=== PATIENT | male | born 1965 | race African-American/Black ===

== ENCOUNTER 2020-09-21 17:02 | Inpatient (IN) | payer OTHER ==
[2020-09-21 19:03] VITALS: BMI 35.8
[2020-09-21] MEDS ORDERED: guaiFENesin 200 MG/10 ML 10 ML UNIT-DOSE CUPS PO PRN (21:20)
[2020-09-21] MEDS ORDERED: NICOTINE POLACRILEX 2 MG GUM BC PRN (21:20)
[2020-09-21] MEDS ORDERED: LOPERAMIDE HCL 2 MG CAPSULE PO PRN (21:20)
[2020-09-21] MEDS ORDERED: IBUPROFEN 400 MG TABLET (FP) PO PRN (21:20)
[2020-09-21] MEDS ORDERED: MAG HYDROX/AL HYDROX/SIMETH 30 ML UNIT-DOSE CUP PO PRN (21:20)
[2020-09-21] MEDS ORDERED: P-EPHED 60MG/TRIPROLIDI 2.5MG TABLET PO PRN (21:20)
[2020-09-21] MEDS ORDERED: MAGNESIUM CITRATE 300 ML BOTTLE PO PRN (21:20)
[2020-09-21] MEDS: THIAMINE HCL 100 MG TABLET (FP) PO SCH (23:14)
[2020-09-21] MEDS: MELATONIN 5 MG TABLETS PO SCH (23:14)
[2020-09-22] MEDS: amLODIPine BESYLATE 5 MG TABLET (FP) PO SCH (09:58)
[2020-09-22] MEDS: PRENATAL VITAMINS W/ FOLIC ACID TABLET (FP) PO SCH (09:58)
[2020-09-22] MEDS ORDERED: PATIENT'S OWN MEDICATION (NON-FORMULARY) (Amlodipine/Atorvastatin [Amlodipine-Atorvast 5-1 PO SCH (10:00)
[2020-09-22] MEDS ORDERED: methaDONE HCL 10 MG TABLET PO SCH (11:00)
[2020-09-22 11:54] LABS: HEMATOCRIT 33.8 % (35.4-49); HEMOGLOBIN 10.4 GM/dL (11.7-16.9); MCHC 30.9 g/dl (32.0-35.9); MEAN CELL VOLUME 71.2 fl (80-96); MEAN PLT VOLUME 7.7 fl (7.5-11.1); PLATELET COUNT 261 K/MM3 (134-434); RBC 4.74 M/mm3 (4.00-5.60); RDW 17.3 % (11.9-15.9); WHITE BLOOD COUNT 6.7 K/mm3 (4.0-10.0)
[2020-09-22 12:08] LABS: BLOOD UREA NITROGEN 21.7 mg/dL (7-18); CALCIUM 8.5 mg/dL (8.5-10.1)
[2020-09-22 12:11] LABS: BILIRUBIN,TOTAL 0.6 mg/dL (0.2-1); CREATININE 1.6 mg/dL (0.55-1.3)
[2020-09-22] MEDS ORDERED: methaDONE HCL 10 MG TABLET ONE (12:24)
[2020-09-22] MEDS ORDERED: methaDONE HCL 40 MG DISPERSABLE TABLET ONE (12:25)
[2020-09-22 14:07] LABS: URINE APPEARANCE CLEAR; URINE BILIRUBIN NEGATIVE (NEGATIVE); URINE COLOR YELLOW; URINE GLUCOSE (UA) NEGATIVE (NEGATIVE); URINE KETONE NEGATIVE (NEGATIVE); URINE LEUK ESTERASE NEGATIVE (NEGATIVE); URINE NITRITE NEGATIVE (NEGATIVE); URINE PROTEIN NEGATIVE (NEGATIVE); URINE UROBILINOGEN 0.2 mg/dL (0.2-1.0)
[2020-09-22] MEDS: ATORVASTATIN CA 10 MG TABLET (FP) PO SCH (21:34)
[2020-09-22] MEDS: THIAMINE HCL 100 MG TABLET (FP) PO SCH (21:34)
[2020-09-22] MEDS: MELATONIN 5 MG TABLETS PO SCH (21:34)
[2020-09-22] MEDS: hydrOXYzine PAMOATE 50 MG CAPSULE (FP) PO PRN (21:35)
[2020-09-23] MEDS ORDERED: methaDONE HCL 40 MG DISPERSABLE TABLET ONE (03:47)
[2020-09-23] MEDS ORDERED: methaDONE HCL 10 MG TABLET ONE (03:47)
[2020-09-23] MEDS: amLODIPine BESYLATE 5 MG TABLET (FP) PO SCH (09:49)
[2020-09-23] MEDS: PRENATAL VITAMINS W/ FOLIC ACID TABLET (FP) PO SCH (09:50)
[2020-09-23] MEDS: ACETAMINOPHEN 325 MG TABLET (FP) PO PRN (16:38)
[2020-09-23] MEDS: ATORVASTATIN CA 10 MG TABLET (FP) PO SCH (21:16)
[2020-09-23] MEDS: MELATONIN 5 MG TABLETS PO SCH (21:16)
[2020-09-23] MEDS: THIAMINE HCL 100 MG TABLET (FP) PO SCH (21:16)
[2020-09-24] MEDS ORDERED: methaDONE HCL 10 MG TABLET ONE (04:28)
[2020-09-24] MEDS ORDERED: methaDONE HCL 40 MG DISPERSABLE TABLET ONE (04:29)
[2020-09-24] MEDS: PRENATAL VITAMINS W/ FOLIC ACID TABLET (FP) PO SCH (10:12)
[2020-09-24] MEDS: amLODIPine BESYLATE 5 MG TABLET (FP) PO SCH (10:12)
[2020-09-24] MEDS: hydrOXYzine PAMOATE 50 MG CAPSULE (FP) PO PRN (21:41)
[2020-09-24] MEDS: MELATONIN 5 MG TABLETS PO SCH (21:41)
[2020-09-24] MEDS: ATORVASTATIN CA 10 MG TABLET (FP) PO SCH (21:41)
[2020-09-24] MEDS: THIAMINE HCL 100 MG TABLET (FP) PO SCH (21:41)
[2020-09-25] MEDS ORDERED: methaDONE HCL 40 MG DISPERSABLE TABLET ONE (03:22)
[2020-09-25] MEDS ORDERED: methaDONE HCL 10 MG TABLET ONE (03:22)
[2020-09-25] MEDS: MAGNESIUM HYDROX 2400MG/30ML ORAL SUSPENSION 30 ML CUP PO PRN (08:26)
[2020-09-25] MEDS: amLODIPine BESYLATE 5 MG TABLET (FP) PO SCH (09:42)
[2020-09-25] MEDS: PRENATAL VITAMINS W/ FOLIC ACID TABLET (FP) PO SCH (09:43)
[2020-09-25] MEDS: ATORVASTATIN CA 10 MG TABLET (FP) PO SCH (21:14)
[2020-09-25] MEDS: hydrOXYzine PAMOATE 50 MG CAPSULE (FP) PO PRN (21:14)
[2020-09-25] MEDS: THIAMINE HCL 100 MG TABLET (FP) PO SCH (21:14)
[2020-09-25] MEDS: MELATONIN 5 MG TABLETS PO SCH (21:14)
[2020-09-26] MEDS ORDERED: methaDONE HCL 40 MG DISPERSABLE TABLET ONE (03:24)
[2020-09-26] MEDS ORDERED: methaDONE HCL 10 MG TABLET ONE (03:24)
[2020-09-26] MEDS: amLODIPine BESYLATE 5 MG TABLET (FP) PO SCH (09:14)
[2020-09-26] MEDS: PRENATAL VITAMINS W/ FOLIC ACID TABLET (FP) PO SCH (09:14)
[2020-09-26] MEDS: MELATONIN 5 MG TABLETS PO SCH (21:22)
[2020-09-26] MEDS: ATORVASTATIN CA 10 MG TABLET (FP) PO SCH (21:23)
[2020-09-26] MEDS: THIAMINE HCL 100 MG TABLET (FP) PO SCH (21:23)
[2020-09-26] MEDS: hydrOXYzine PAMOATE 50 MG CAPSULE (FP) PO PRN (21:23)
[2020-09-27] MEDS ORDERED: methaDONE HCL 10 MG TABLET ONE (03:22)
[2020-09-27] MEDS ORDERED: methaDONE HCL 40 MG DISPERSABLE TABLET ONE (03:23)
[2020-09-27] MEDS: PRENATAL VITAMINS W/ FOLIC ACID TABLET (FP) PO SCH (09:53)
[2020-09-27] MEDS: amLODIPine BESYLATE 5 MG TABLET (FP) PO SCH (09:53)
[2020-09-27] MEDS: MAGNESIUM HYDROX 2400MG/30ML ORAL SUSPENSION 30 ML CUP PO PRN (09:54)
[2020-09-27] MEDS: MELATONIN 5 MG TABLETS PO SCH (21:35)
[2020-09-27] MEDS: THIAMINE HCL 100 MG TABLET (FP) PO SCH (21:35)
[2020-09-27] MEDS: ATORVASTATIN CA 10 MG TABLET (FP) PO SCH (21:36)
[2020-09-27] MEDS: hydrOXYzine PAMOATE 50 MG CAPSULE (FP) PO PRN (21:36)
[2020-09-27] MEDS: ACETAMINOPHEN 325 MG TABLET (FP) PO PRN (22:04)
[2020-09-28] MEDS ORDERED: methaDONE HCL 10 MG TABLET ONE (04:26)
[2020-09-28] MEDS ORDERED: methaDONE HCL 40 MG DISPERSABLE TABLET ONE (04:26)
[2020-09-28] MEDS: amLODIPine BESYLATE 5 MG TABLET (FP) PO SCH (10:12)
[2020-09-28] MEDS: PRENATAL VITAMINS W/ FOLIC ACID TABLET (FP) PO SCH (10:12)
[2020-09-28] MEDS: THIAMINE HCL 100 MG TABLET (FP) PO SCH (21:30)
[2020-09-28] MEDS: MELATONIN 5 MG TABLETS PO SCH (21:30)
[2020-09-28] MEDS: ATORVASTATIN CA 10 MG TABLET (FP) PO SCH (21:30)
[2020-09-28] MEDS: hydrOXYzine PAMOATE 50 MG CAPSULE (FP) PO PRN (21:31)
[2020-09-29] MEDS ORDERED: methaDONE HCL 10 MG TABLET PO SCH (06:00)
[2020-09-29] MEDS ORDERED: methaDONE HCL 10 MG TABLET ONE (06:00)
[2020-09-29] MEDS ORDERED: methaDONE HCL 40 MG DISPERSABLE TABLET ONE (06:00)
[2020-09-29] MEDS: PRENATAL VITAMINS W/ FOLIC ACID TABLET (FP) PO SCH (10:10)
[2020-09-29] MEDS: amLODIPine BESYLATE 5 MG TABLET (FP) PO SCH (10:10)
[2020-09-29] MEDS: MELATONIN 5 MG TABLETS PO SCH (21:46)
[2020-09-29] MEDS: hydrOXYzine PAMOATE 50 MG CAPSULE (FP) PO PRN (21:46)
[2020-09-29] MEDS: THIAMINE HCL 100 MG TABLET (FP) PO SCH (21:46)
[2020-09-29] MEDS: ATORVASTATIN CA 10 MG TABLET (FP) PO SCH (21:46)
[2020-09-30] MEDS ORDERED: methaDONE HCL 40 MG DISPERSABLE TABLET ONE (06:08)
[2020-09-30] MEDS ORDERED: methaDONE HCL 10 MG TABLET ONE (06:08)
[2020-09-30] MEDS: PRENATAL VITAMINS W/ FOLIC ACID TABLET (FP) PO SCH (10:33)
[2020-09-30] MEDS: amLODIPine BESYLATE 5 MG TABLET (FP) PO SCH (10:33)
[2020-09-30] MEDS: MELATONIN 5 MG TABLETS PO SCH (21:45)
[2020-09-30] MEDS: hydrOXYzine PAMOATE 50 MG CAPSULE (FP) PO PRN (21:45)
[2020-09-30] MEDS: ATORVASTATIN CA 10 MG TABLET (FP) PO SCH (21:45)
[2020-09-30] MEDS: THIAMINE HCL 100 MG TABLET (FP) PO SCH (21:45)
[2020-10-01] MEDS ORDERED: methaDONE HCL 10 MG TABLET ONE (06:01)
[2020-10-01] MEDS ORDERED: methaDONE HCL 40 MG DISPERSABLE TABLET ONE (06:01)
[2020-10-01] MEDS: PRENATAL VITAMINS W/ FOLIC ACID TABLET (FP) PO SCH (10:23)
[2020-10-01] MEDS: amLODIPine BESYLATE 5 MG TABLET (FP) PO SCH (10:23)
[2020-10-01] MEDS: MELATONIN 5 MG TABLETS PO SCH (21:29)
[2020-10-01] MEDS: hydrOXYzine PAMOATE 50 MG CAPSULE (FP) PO PRN (21:29)
[2020-10-01] MEDS: THIAMINE HCL 100 MG TABLET (FP) PO SCH (21:29)
[2020-10-01] MEDS: ATORVASTATIN CA 10 MG TABLET (FP) PO SCH (21:29)
[2020-10-02] MEDS ORDERED: methaDONE HCL 10 MG TABLET ONE (03:59)
[2020-10-02] MEDS ORDERED: methaDONE HCL 40 MG DISPERSABLE TABLET ONE (04:00)
[2020-10-02] MEDS: amLODIPine BESYLATE 5 MG TABLET (FP) PO SCH (09:50)
[2020-10-02] MEDS: PRENATAL VITAMINS W/ FOLIC ACID TABLET (FP) PO SCH (09:50)
[2020-10-02] MEDS: ATORVASTATIN CA 10 MG TABLET (FP) PO SCH (21:26)
[2020-10-02] MEDS: THIAMINE HCL 100 MG TABLET (FP) PO SCH (21:26)
[2020-10-02] MEDS: MELATONIN 5 MG TABLETS PO SCH (21:26)
[2020-10-03] MEDS: ACETAMINOPHEN 325 MG TABLET (FP) PO PRN (00:42)
[2020-10-03] MEDS ORDERED: methaDONE HCL 10 MG TABLET ONE (04:23)
[2020-10-03] MEDS ORDERED: methaDONE HCL 40 MG DISPERSABLE TABLET ONE (04:23)
[2020-10-03] MEDS: MAGNESIUM HYDROX 2400MG/30ML ORAL SUSPENSION 30 ML CUP PO PRN (06:40)
[2020-10-03] MEDS: amLODIPine BESYLATE 5 MG TABLET (FP) PO SCH (09:50)
[2020-10-03] MEDS: PRENATAL VITAMINS W/ FOLIC ACID TABLET (FP) PO SCH (09:50)
[2020-10-03] MEDS: THIAMINE HCL 100 MG TABLET (FP) PO SCH (21:20)
[2020-10-03] MEDS: ATORVASTATIN CA 10 MG TABLET (FP) PO SCH (21:20)
[2020-10-03] MEDS: MELATONIN 5 MG TABLETS PO SCH (21:20)
[2020-10-03] MEDS: hydrOXYzine PAMOATE 50 MG CAPSULE (FP) PO PRN (21:20)
[2020-10-03] MEDS: DOCUSATE SODIUM 100 MG CAPSULE (FP) PO SCH (21:21)
[2020-10-04] MEDS ORDERED: methaDONE HCL 10 MG TABLET ONE (05:01)
[2020-10-04] MEDS ORDERED: methaDONE HCL 40 MG DISPERSABLE TABLET ONE (05:02)
[2020-10-04] MEDS: PRENATAL VITAMINS W/ FOLIC ACID TABLET (FP) PO SCH (10:09)
[2020-10-04] MEDS: amLODIPine BESYLATE 5 MG TABLET (FP) PO SCH (10:09)
[2020-10-04] MEDS: THIAMINE HCL 100 MG TABLET (FP) PO SCH (21:21)
[2020-10-04] MEDS: MELATONIN 5 MG TABLETS PO SCH (21:21)
[2020-10-04] MEDS: ATORVASTATIN CA 10 MG TABLET (FP) PO SCH (21:21)
[2020-10-04] MEDS: hydrOXYzine PAMOATE 50 MG CAPSULE (FP) PO PRN (21:21)
[2020-10-04] MEDS: DOCUSATE SODIUM 100 MG CAPSULE (FP) PO SCH (21:21)
[2020-10-05] MEDS ORDERED: methaDONE HCL 40 MG DISPERSABLE TABLET ONE (03:42)
[2020-10-05] MEDS ORDERED: methaDONE HCL 10 MG TABLET ONE (03:42)
[2020-10-05] MEDS: PRENATAL VITAMINS W/ FOLIC ACID TABLET (FP) PO SCH (10:15)
[2020-10-05] MEDS: amLODIPine BESYLATE 5 MG TABLET (FP) PO SCH (10:15)
[2020-10-05] MEDS: ACETAMINOPHEN 325 MG TABLET (FP) PO PRN (19:23)
[2020-10-05] MEDS: hydrOXYzine PAMOATE 50 MG CAPSULE (FP) PO PRN (21:20)
[2020-10-05] MEDS: MELATONIN 5 MG TABLETS PO SCH (21:20)
[2020-10-05] MEDS: THIAMINE HCL 100 MG TABLET (FP) PO SCH (21:20)
[2020-10-05] MEDS: DOCUSATE SODIUM 100 MG CAPSULE (FP) PO SCH (21:20)
[2020-10-05] MEDS: ATORVASTATIN CA 10 MG TABLET (FP) PO SCH (21:20)
[2020-10-06] MEDS ORDERED: methaDONE HCL 10 MG TABLET ONE (06:23)
[2020-10-06] MEDS ORDERED: methaDONE HCL 40 MG DISPERSABLE TABLET ONE (06:24)
[2020-10-06] MEDS: PRENATAL VITAMINS W/ FOLIC ACID TABLET (FP) PO SCH (10:00)
[2020-10-06] MEDS: amLODIPine BESYLATE 5 MG TABLET (FP) PO SCH (10:01)
[2020-10-06] MEDS: THIAMINE HCL 100 MG TABLET (FP) PO SCH (21:33)
[2020-10-06] MEDS: ATORVASTATIN CA 10 MG TABLET (FP) PO SCH (21:33)
[2020-10-06] MEDS: DOCUSATE SODIUM 100 MG CAPSULE (FP) PO SCH (21:33)
[2020-10-06] MEDS: MELATONIN 5 MG TABLETS PO SCH (21:34)
[2020-10-07] MEDS ORDERED: methaDONE HCL 40 MG DISPERSABLE TABLET ONE (03:26)
[2020-10-07] MEDS ORDERED: methaDONE HCL 10 MG TABLET ONE (03:26)
[2020-10-07] MEDS: amLODIPine BESYLATE 5 MG TABLET (FP) PO SCH (09:52)
[2020-10-07] MEDS: PRENATAL VITAMINS W/ FOLIC ACID TABLET (FP) PO SCH (09:52)
[2020-10-07] MEDS: DOCUSATE SODIUM 100 MG CAPSULE (FP) PO SCH (21:21)
[2020-10-07] MEDS: MELATONIN 5 MG TABLETS PO SCH (21:22)
[2020-10-07] MEDS: THIAMINE HCL 100 MG TABLET (FP) PO SCH (21:22)
[2020-10-07] MEDS: ATORVASTATIN CA 10 MG TABLET (FP) PO SCH (21:22)
[2020-10-08] MEDS ORDERED: methaDONE HCL 40 MG DISPERSABLE TABLET ONE (04:48)
[2020-10-08] MEDS ORDERED: methaDONE HCL 10 MG TABLET ONE (04:48)
[2020-10-08 07:03] VITALS: TEMP 98
[2020-10-08] MEDS: PRENATAL VITAMINS W/ FOLIC ACID TABLET (FP) PO SCH (09:07)
[2020-10-08] MEDS: amLODIPine BESYLATE 5 MG TABLET (FP) PO SCH (09:07)
[2020-10-08 09:40] VITALS: BP 144/69; PULSE 74
== END 2020-10-08 10:22 | disposition home or self-care (01) | DRG 772 ==
LOC: YASAS 17:02 → Y5N 21:07
PROVIDERS: ADMIT Allergy & Immunology; ATTEND Allergy & Immunology
PROC: HZ42ZZZ Group Counseling for Substance Abuse Treatment, Cognitive-Behavioral (ICD-10-PCS; principal; 2020-09-21)
DX: F11.20 Opioid dependence, uncomplicated (principal); F14.20 Cocaine dependence, uncomplicated; F17.210 Nicotine dependence, cigarettes, uncomplicated; F43.10 Post-traumatic stress disorder, unspecified; D50.9 Iron deficiency anemia, unspecified; E78.5 Hyperlipidemia, unspecified; I10 Essential (primary) hypertension; H55.00 Unspecified nystagmus; E66.9 Obesity, unspecified; Z68.35 Body mass index [BMI] 35.0-35.9, adult; R76.11 Nonspecific reaction to tuberculin skin test without active tuberculosis; K00.0 Anodontia; K59.03 Drug induced constipation; T40.2X5A Adverse effect of other opioids, initial encounter; Y92.238 Other place in hospital as the place of occurrence of the external cause; Z88.8 Allergy status to other drugs, medicaments and biological substances
CPT/HCPCS: 36415; 71046-TC-FY; 80053; 81003; 85027; 86780; 93005; 93010; C9803; U0003

== ENCOUNTER 2021-01-07 14:03 | Inpatient (IN) | payer OTHER ==
[2021-01-07 17:00] VITALS: BMI 35.5
[2021-01-07] MEDS ORDERED: P-EPHED 60MG/TRIPROLIDI 2.5MG TABLET PO PRN (22:19)
[2021-01-07] MEDS ORDERED: MAG HYDROX/AL HYDROX/SIMETH 30 ML UNIT-DOSE CUP PO PRN (22:19)
[2021-01-07] MEDS ORDERED: LOPERAMIDE HCL 2 MG CAPSULE PO PRN (22:19)
[2021-01-07] MEDS ORDERED: guaiFENesin 200 MG/10 ML 10 ML UNIT-DOSE CUPS PO PRN (22:19)
[2021-01-07] MEDS ORDERED: MAGNESIUM CITRATE 300 ML BOTTLE PO PRN (22:19)
[2021-01-07] MEDS ORDERED: IBUPROFEN 400 MG TABLET (FP) PO PRN (22:19)
[2021-01-07] MEDS ORDERED: ALBUTEROL SO4 HFA INHALER IH SCH (22:30)
[2021-01-07] MEDS: MELATONIN 5 MG TABLETS PO SCH (23:39)
[2021-01-08] MEDS: amLODIPine BESYLATE 5 MG TABLET (FP) PO SCH (09:50)
[2021-01-08] MEDS: PRENATAL VITAMINS W/ FOLIC ACID TABLET (FP) PO SCH (09:50)
[2021-01-08] MEDS: FERROUS SO4 325 MG TABLET (FP) PO SCH (09:50)
[2021-01-08] MEDS ORDERED: METHADONE HCL 10 MG TABLET PO ONE (09:53)
[2021-01-08] MEDS ORDERED: PATIENT'S OWN MEDICATION (NON-FORMULARY) (Amlodipine/Atorvastatin [Amlodipine-Atorvast 5-1 PO SCH (10:00)
[2021-01-08] MEDS ORDERED: FOLIC ACID 1 MG TABLET (FP) PO SCH (10:00)
[2021-01-08 10:11] LABS: HEMATOCRIT 31.9 % (35.4-49); HEMOGLOBIN 10.2 GM/dL (11.7-16.9); MCH 22.6 pg (25.7-33.7); MEAN CELL VOLUME 70.7 fl (80-96); MEAN PLT VOLUME 7.1 fl (7.5-11.1); PLATELET COUNT 302 K/MM3 (134-434); RBC 4.51 M/mm3 (4.00-5.60); RDW 16.2 % (11.9-15.9); WHITE BLOOD COUNT 5.8 K/mm3 (4.0-10.0)
[2021-01-08 10:21] LABS: ALBUMIN 3.4 g/dl (3.4-5.0); BLOOD UREA NITROGEN 27.2 mg/dL (7-18); CALCIUM 9.1 mg/dL (8.5-10.1)
[2021-01-08] MEDS ORDERED: METHADONE HCL 5 MG TABLET ONE (10:22)
[2021-01-08] MEDS ORDERED: METHADONE HCL 40 MG DISPERSABLE TABLET ONE (10:23)
[2021-01-08] MEDS ORDERED: METHADONE HCL 10 MG TABLET ONE (10:23)
[2021-01-08 10:24] LABS: CREATININE 2.2 mg/dL (0.55-1.3)
[2021-01-08 10:25] LABS: BILIRUBIN,TOTAL 0.6 mg/dL (0.2-1)
[2021-01-08 10:26] LABS: TOT PROT 6.4 g/dl (6.4-8.2)
[2021-01-08] MEDS: hydrOXYzine PAMOATE 25 MG CAPSULE (FP) PO PRN ×2 (10:28→21:16)
[2021-01-08] MEDS ORDERED: METHADONE PO ONE (10:30)
[2021-01-08 17:41] LABS: URINE APPEARANCE CLEAR; URINE BILIRUBIN NEGATIVE (NEGATIVE); URINE COLOR YELLOW; URINE GLUCOSE (UA) NEGATIVE (NEGATIVE); URINE KETONE NEGATIVE (NEGATIVE); URINE LEUK ESTERASE NEGATIVE (NEGATIVE); URINE NITRITE NEGATIVE (NEGATIVE); URINE PROTEIN NEGATIVE (NEGATIVE); URINE UROBILINOGEN 0.2 mg/dL (0.2-1.0)
[2021-01-08] MEDS: THIAMINE HCL 100 MG TABLET (FP) PO SCH (21:15)
[2021-01-08] MEDS: MELATONIN 5 MG TABLETS PO SCH (21:15)
[2021-01-08] MEDS: ATORVASTATIN CA 10 MG TABLET (FP) PO SCH (21:17)
[2021-01-08] MEDS ORDERED: THIAMINE HCL 100 MG TABLET (FP) PO SCH (22:00)
[2021-01-09] MEDS: MAGNESIUM HYDROX 2400MG/30ML ORAL SUSPENSION 30 ML CUP PO PRN ×2 (03:22→21:02)
[2021-01-09] MEDS ORDERED: METHADONE HCL 10 MG TABLET PO SCH (06:00)
[2021-01-09] MEDS ORDERED: METHADONE HCL 5 MG TABLET ONE (06:17)
[2021-01-09] MEDS ORDERED: METHADONE HCL 10 MG TABLET ONE (06:17)
[2021-01-09] MEDS ORDERED: METHADONE HCL 40 MG DISPERSABLE TABLET ONE (06:18)
[2021-01-09] MEDS: METHADONE PO SCH (07:45)
[2021-01-09] MEDS: FERROUS SO4 325 MG TABLET (FP) PO SCH (09:56)
[2021-01-09] MEDS: amLODIPine BESYLATE 5 MG TABLET (FP) PO SCH (09:56)
[2021-01-09] MEDS: PRENATAL VITAMINS W/ FOLIC ACID TABLET (FP) PO SCH (09:56)
[2021-01-09] MEDS: MELATONIN 5 MG TABLETS PO SCH (21:01)
[2021-01-09] MEDS: THIAMINE HCL 100 MG TABLET (FP) PO SCH (21:01)
[2021-01-09] MEDS: ATORVASTATIN CA 10 MG TABLET (FP) PO SCH (21:01)
[2021-01-10] MEDS ORDERED: METHADONE HCL 5 MG TABLET ONE (03:24)
[2021-01-10] MEDS ORDERED: METHADONE HCL 40 MG DISPERSABLE TABLET ONE (03:24)
[2021-01-10] MEDS ORDERED: METHADONE HCL 10 MG TABLET ONE (03:24)
[2021-01-10] MEDS: METHADONE PO SCH (06:45)
[2021-01-10] MEDS: amLODIPine BESYLATE 5 MG TABLET (FP) PO SCH (10:08)
[2021-01-10] MEDS: FERROUS SO4 325 MG TABLET (FP) PO SCH (10:08)
[2021-01-10] MEDS: PRENATAL VITAMINS W/ FOLIC ACID TABLET (FP) PO SCH (10:08)
[2021-01-10] MEDS: ATORVASTATIN CA 10 MG TABLET (FP) PO SCH (21:13)
[2021-01-10] MEDS: THIAMINE HCL 100 MG TABLET (FP) PO SCH (21:13)
[2021-01-10] MEDS: MELATONIN 5 MG TABLETS PO SCH (21:13)
[2021-01-10] MEDS: AMMONIUM LACTATE 12% LOTION 225 GM BOTTLE TP SCH (21:14)
[2021-01-10] MEDS: DOCUSATE SODIUM 100 MG CAPSULE (FP) PO SCH (21:15)
[2021-01-11 05:11] LABS: SARS-CoV-2 NAA Not Detected (Not Detected)
[2021-01-11] MEDS ORDERED: METHADONE HCL 40 MG DISPERSABLE TABLET ONE (06:31)
[2021-01-11] MEDS ORDERED: METHADONE HCL 10 MG TABLET ONE (06:31)
[2021-01-11] MEDS ORDERED: METHADONE HCL 5 MG TABLET ONE (06:31)
[2021-01-11] MEDS: METHADONE PO SCH (07:11)
[2021-01-11] MEDS ORDERED: PT OWN MED DRAWER 7, Y5N ONE ×3 (08:53→19:04)
[2021-01-11] MEDS: FERROUS SO4 325 MG TABLET (FP) PO SCH (10:11)
[2021-01-11] MEDS: AMMONIUM LACTATE 12% LOTION 225 GM BOTTLE TP SCH ×2 (10:11→21:25)
[2021-01-11] MEDS: PRENATAL VITAMINS W/ FOLIC ACID TABLET (FP) PO SCH (10:11)
[2021-01-11] MEDS: amLODIPine BESYLATE 5 MG TABLET (FP) PO SCH (10:11)
[2021-01-11] MEDS ORDERED: MASKS NR ONE (16:01)
[2021-01-11] MEDS: DOCUSATE SODIUM 100 MG CAPSULE (FP) PO SCH (21:24)
[2021-01-11] MEDS: THIAMINE HCL 100 MG TABLET (FP) PO SCH (21:24)
[2021-01-11] MEDS: ATORVASTATIN CA 10 MG TABLET (FP) PO SCH (21:24)
[2021-01-11] MEDS: MELATONIN 5 MG TABLETS PO SCH (21:25)
[2021-01-12] MEDS ORDERED: METHADONE HCL 10 MG TABLET ONE (06:16)
[2021-01-12] MEDS ORDERED: METHADONE HCL 5 MG TABLET ONE (06:16)
[2021-01-12] MEDS ORDERED: METHADONE HCL 40 MG DISPERSABLE TABLET ONE (06:17)
[2021-01-12] MEDS: METHADONE PO SCH (06:32)
[2021-01-12] MEDS ORDERED: PT OWN MED DRAWER 7, Y5N ONE (09:00)
[2021-01-12] MEDS: PRENATAL VITAMINS W/ FOLIC ACID TABLET (FP) PO SCH (09:58)
[2021-01-12] MEDS: amLODIPine BESYLATE 5 MG TABLET (FP) PO SCH (09:58)
[2021-01-12] MEDS: FERROUS SO4 325 MG TABLET (FP) PO SCH (09:58)
[2021-01-12] MEDS: AMMONIUM LACTATE 12% LOTION 225 GM BOTTLE TP SCH ×2 (09:58→21:22)
[2021-01-12] MEDS ORDERED: ALBUTEROL SO4 HFA INHALER IH PRN (12:35)
[2021-01-12] MEDS: ATORVASTATIN CA 10 MG TABLET (FP) PO SCH (21:21)
[2021-01-12] MEDS: DOCUSATE SODIUM 100 MG CAPSULE (FP) PO SCH (21:21)
[2021-01-12] MEDS: THIAMINE HCL 100 MG TABLET (FP) PO SCH (21:21)
[2021-01-12] MEDS: MELATONIN 5 MG TABLETS PO SCH (21:21)
[2021-01-13] MEDS ORDERED: METHADONE HCL 5 MG TABLET ONE (06:43)
[2021-01-13] MEDS ORDERED: METHADONE HCL 10 MG TABLET ONE (06:43)
[2021-01-13] MEDS ORDERED: METHADONE HCL 40 MG DISPERSABLE TABLET ONE (06:44)
[2021-01-13] MEDS: METHADONE PO SCH (06:56)
[2021-01-13] MEDS: amLODIPine BESYLATE 5 MG TABLET (FP) PO SCH (10:00)
[2021-01-13] MEDS: AMMONIUM LACTATE 12% LOTION 225 GM BOTTLE TP SCH ×2 (10:00→21:10)
[2021-01-13] MEDS: PRENATAL VITAMINS W/ FOLIC ACID TABLET (FP) PO SCH (10:00)
[2021-01-13] MEDS: FERROUS SO4 325 MG TABLET (FP) PO SCH (10:00)
[2021-01-13] MEDS: MELATONIN 5 MG TABLETS PO SCH (21:09)
[2021-01-13] MEDS: DOCUSATE SODIUM 100 MG CAPSULE (FP) PO SCH (21:09)
[2021-01-13] MEDS: ATORVASTATIN CA 10 MG TABLET (FP) PO SCH (21:09)
[2021-01-13] MEDS: THIAMINE HCL 100 MG TABLET (FP) PO SCH (21:09)
[2021-01-14] MEDS ORDERED: METHADONE HCL 5 MG TABLET ONE (05:23)
[2021-01-14] MEDS ORDERED: METHADONE HCL 40 MG DISPERSABLE TABLET ONE (05:23)
[2021-01-14] MEDS ORDERED: METHADONE HCL 10 MG TABLET ONE (05:23)
[2021-01-14] MEDS: METHADONE PO SCH (06:34)
[2021-01-14] MEDS: FERROUS SO4 325 MG TABLET (FP) PO SCH (09:42)
[2021-01-14] MEDS: amLODIPine BESYLATE 5 MG TABLET (FP) PO SCH (09:43)
[2021-01-14] MEDS: AMMONIUM LACTATE 12% LOTION 225 GM BOTTLE TP SCH ×2 (09:43→21:06)
[2021-01-14] MEDS: PRENATAL VITAMINS W/ FOLIC ACID TABLET (FP) PO SCH (09:43)
[2021-01-14] MEDS: THIAMINE HCL 100 MG TABLET (FP) PO SCH (21:05)
[2021-01-14] MEDS: ATORVASTATIN CA 10 MG TABLET (FP) PO SCH (21:05)
[2021-01-14] MEDS: DOCUSATE SODIUM 100 MG CAPSULE (FP) PO SCH (21:05)
[2021-01-14] MEDS: MELATONIN 5 MG TABLETS PO SCH (21:05)
[2021-01-15] MEDS ORDERED: METHADONE HCL 10 MG TABLET ONE (06:18)
[2021-01-15] MEDS ORDERED: METHADONE HCL 5 MG TABLET ONE (06:18)
[2021-01-15] MEDS ORDERED: METHADONE HCL 40 MG DISPERSABLE TABLET ONE (06:19)
[2021-01-15] MEDS: METHADONE PO SCH (06:59)
[2021-01-15] MEDS: FERROUS SO4 325 MG TABLET (FP) PO SCH (09:58)
[2021-01-15] MEDS: amLODIPine BESYLATE 5 MG TABLET (FP) PO SCH (09:58)
[2021-01-15] MEDS: PRENATAL VITAMINS W/ FOLIC ACID TABLET (FP) PO SCH (09:58)
[2021-01-15] MEDS: AMMONIUM LACTATE 12% LOTION 225 GM BOTTLE TP SCH ×2 (09:59→21:22)
[2021-01-15] MEDS: THIAMINE HCL 100 MG TABLET (FP) PO SCH (21:23)
[2021-01-15] MEDS: ATORVASTATIN CA 10 MG TABLET (FP) PO SCH (21:23)
[2021-01-15] MEDS: DOCUSATE SODIUM 100 MG CAPSULE (FP) PO SCH (21:23)
[2021-01-15] MEDS: MELATONIN 5 MG TABLETS PO SCH (21:23)
[2021-01-16] MEDS ORDERED: METHADONE HCL 5 MG TABLET ONE (03:21)
[2021-01-16] MEDS ORDERED: METHADONE HCL 10 MG TABLET ONE (03:21)
[2021-01-16] MEDS ORDERED: METHADONE HCL 40 MG DISPERSABLE TABLET ONE (03:21)
[2021-01-16] MEDS: METHADONE PO SCH (06:54)
[2021-01-16] MEDS: FERROUS SO4 325 MG TABLET (FP) PO SCH (09:28)
[2021-01-16] MEDS: amLODIPine BESYLATE 5 MG TABLET (FP) PO SCH (09:28)
[2021-01-16] MEDS: AMMONIUM LACTATE 12% LOTION 225 GM BOTTLE TP SCH ×2 (09:29→21:39)
[2021-01-16] MEDS: PRENATAL VITAMINS W/ FOLIC ACID TABLET (FP) PO SCH (09:29)
[2021-01-16] MEDS ORDERED: PT OWN MED DRAWER 7, Y5N ONE (16:04)
[2021-01-16] MEDS: DOCUSATE SODIUM 100 MG CAPSULE (FP) PO SCH (21:37)
[2021-01-16] MEDS: ATORVASTATIN CA 10 MG TABLET (FP) PO SCH (21:37)
[2021-01-16] MEDS: THIAMINE HCL 100 MG TABLET (FP) PO SCH (21:38)
[2021-01-16] MEDS: MELATONIN 5 MG TABLETS PO SCH (21:38)
[2021-01-17] MEDS ORDERED: METHADONE HCL 5 MG TABLET ONE (03:21)
[2021-01-17] MEDS ORDERED: METHADONE HCL 40 MG DISPERSABLE TABLET ONE (03:21)
[2021-01-17] MEDS ORDERED: METHADONE HCL 10 MG TABLET ONE (03:21)
[2021-01-17] MEDS: METHADONE PO SCH (07:01)
[2021-01-17] MEDS: AMMONIUM LACTATE 12% LOTION 225 GM BOTTLE TP SCH ×2 (09:36→21:18)
[2021-01-17] MEDS: PRENATAL VITAMINS W/ FOLIC ACID TABLET (FP) PO SCH (09:37)
[2021-01-17] MEDS: FERROUS SO4 325 MG TABLET (FP) PO SCH (09:37)
[2021-01-17] MEDS: amLODIPine BESYLATE 5 MG TABLET (FP) PO SCH (09:37)
[2021-01-17] MEDS: MELATONIN 5 MG TABLETS PO SCH (21:11)
[2021-01-17] MEDS: ATORVASTATIN CA 10 MG TABLET (FP) PO SCH (21:11)
[2021-01-17] MEDS: THIAMINE HCL 100 MG TABLET (FP) PO SCH (21:11)
[2021-01-17] MEDS: DOCUSATE SODIUM 100 MG CAPSULE (FP) PO SCH (21:11)
[2021-01-18] MEDS ORDERED: METHADONE HCL 5 MG TABLET ONE (03:33)
[2021-01-18] MEDS ORDERED: METHADONE HCL 40 MG DISPERSABLE TABLET ONE (03:34)
[2021-01-18] MEDS ORDERED: METHADONE HCL 10 MG TABLET ONE (03:34)
[2021-01-18] MEDS: METHADONE PO SCH (06:53)
[2021-01-18] MEDS: FERROUS SO4 325 MG TABLET (FP) PO SCH (09:33)
[2021-01-18] MEDS: PRENATAL VITAMINS W/ FOLIC ACID TABLET (FP) PO SCH (09:33)
[2021-01-18] MEDS: AMMONIUM LACTATE 12% LOTION 225 GM BOTTLE TP SCH ×2 (09:33→21:36)
[2021-01-18] MEDS: amLODIPine BESYLATE 5 MG TABLET (FP) PO SCH (09:33)
[2021-01-18] MEDS: DOCUSATE SODIUM 100 MG CAPSULE (FP) PO SCH (21:35)
[2021-01-18] MEDS: ATORVASTATIN CA 10 MG TABLET (FP) PO SCH (21:35)
[2021-01-18] MEDS: THIAMINE HCL 100 MG TABLET (FP) PO SCH (21:35)
[2021-01-18] MEDS: MELATONIN 5 MG TABLETS PO SCH (21:35)
[2021-01-18] MEDS: ACETAMINOPHEN 325 MG TABLET (FP) PO PRN (22:49)
[2021-01-19] MEDS ORDERED: METHADONE HCL 5 MG TABLET ONE (03:17)
[2021-01-19] MEDS ORDERED: METHADONE HCL 10 MG TABLET ONE (03:18)
[2021-01-19] MEDS ORDERED: METHADONE HCL 40 MG DISPERSABLE TABLET ONE (03:18)
[2021-01-19] MEDS: METHADONE PO SCH (06:58)
[2021-01-19] MEDS: amLODIPine BESYLATE 5 MG TABLET (FP) PO SCH (09:48)
[2021-01-19] MEDS: PRENATAL VITAMINS W/ FOLIC ACID TABLET (FP) PO SCH (09:48)
[2021-01-19] MEDS: FERROUS SO4 325 MG TABLET (FP) PO SCH (09:48)
[2021-01-19] MEDS: AMMONIUM LACTATE 12% LOTION 225 GM BOTTLE TP SCH ×2 (09:49→21:25)
[2021-01-19] MEDS ORDERED: PT OWN MED DRAWER 7, Y5N ONE (19:57)
[2021-01-19] MEDS: DOCUSATE SODIUM 100 MG CAPSULE (FP) PO SCH (21:25)
[2021-01-19] MEDS: ATORVASTATIN CA 10 MG TABLET (FP) PO SCH (21:25)
[2021-01-19] MEDS: MELATONIN 5 MG TABLETS PO SCH (21:25)
[2021-01-19] MEDS: THIAMINE HCL 100 MG TABLET (FP) PO SCH (21:26)
[2021-01-19] MEDS: ACETAMINOPHEN 325 MG TABLET (FP) PO PRN (22:52)
[2021-01-20] MEDS ORDERED: METHADONE HCL 5 MG TABLET ONE (03:16)
[2021-01-20] MEDS ORDERED: METHADONE HCL 40 MG DISPERSABLE TABLET ONE (03:16)
[2021-01-20] MEDS ORDERED: METHADONE HCL 10 MG TABLET ONE (03:16)
[2021-01-20] MEDS: METHADONE PO SCH (06:55)
[2021-01-20] MEDS: FERROUS SO4 325 MG TABLET (FP) PO SCH (09:10)
[2021-01-20] MEDS: PRENATAL VITAMINS W/ FOLIC ACID TABLET (FP) PO SCH (09:10)
[2021-01-20] MEDS: amLODIPine BESYLATE 5 MG TABLET (FP) PO SCH (09:10)
[2021-01-20] MEDS: AMMONIUM LACTATE 12% LOTION 225 GM BOTTLE TP SCH ×2 (09:11→21:15)
[2021-01-20] MEDS: MELATONIN 5 MG TABLETS PO SCH (21:14)
[2021-01-20] MEDS: THIAMINE HCL 100 MG TABLET (FP) PO SCH (21:14)
[2021-01-20] MEDS: DOCUSATE SODIUM 100 MG CAPSULE (FP) PO SCH (21:14)
[2021-01-20] MEDS: ATORVASTATIN CA 10 MG TABLET (FP) PO SCH (21:14)
[2021-01-21] MEDS ORDERED: METHADONE HCL 10 MG TABLET ONE (03:18)
[2021-01-21] MEDS ORDERED: METHADONE HCL 5 MG TABLET ONE (03:18)
[2021-01-21] MEDS ORDERED: METHADONE HCL 40 MG DISPERSABLE TABLET ONE (03:19)
[2021-01-21] MEDS: METHADONE PO SCH (07:02)
[2021-01-21 07:04] VITALS: TEMP 98.1
[2021-01-21] MEDS ORDERED: PT OWN MED DRAWER 7, Y5N ONE (09:00)
[2021-01-21 09:37] VITALS: BP 109/58; PULSE 58
== END 2021-01-21 09:04 | disposition home or self-care (01) | DRG 772 ==
LOC: YASAS 14:03 → Y3E 22:10
PROVIDERS: ADMIT Allergy & Immunology; ATTEND Allergy & Immunology
PROC: HZ42ZZZ Group Counseling for Substance Abuse Treatment, Cognitive-Behavioral (ICD-10-PCS; principal; 2021-01-07)
DX: F11.20 Opioid dependence, uncomplicated (principal); F10.20 Alcohol dependence, uncomplicated; F14.20 Cocaine dependence, uncomplicated; F12.20 Cannabis dependence, uncomplicated; I10 Essential (primary) hypertension; J45.909 Unspecified asthma, uncomplicated; E78.5 Hyperlipidemia, unspecified; E11.9 Type 2 diabetes mellitus without complications; E66.9 Obesity, unspecified; Z68.35 Body mass index [BMI] 35.0-35.9, adult; Z91.013 Allergy to seafood; Z86.59 Personal history of other mental and behavioral disorders; Z87.891 Personal history of nicotine dependence; Z88.8 Allergy status to other drugs, medicaments and biological substances
CPT/HCPCS: 36415; 80053; 81003; 82962; 85027; 86780; C9803; U0003; U0005

== ENCOUNTER 2021-05-20 09:40 | Inpatient (IN) | payer OTHER ==
[2021-05-20 11:19] VITALS: BMI 37.4
[2021-05-20] MEDS ORDERED: P-EPHED 60MG/TRIPROLIDI 2.5MG TABLET PO PRN (14:51)
[2021-05-20] MEDS ORDERED: MAGNESIUM CITRATE 300 ML BOTTLE PO PRN (14:51)
[2021-05-20] MEDS ORDERED: guaiFENesin 200 MG/10 ML 10 ML UNIT-DOSE CUPS PO PRN (14:51)
[2021-05-20] MEDS ORDERED: MAG HYDROX/AL HYDROX/SIMETH 30 ML UNIT-DOSE CUP PO PRN (14:51)
[2021-05-20] MEDS ORDERED: LOPERAMIDE HCL 2 MG CAPSULE PO PRN (14:51)
[2021-05-20] MEDS ORDERED: IBUPROFEN 400 MG TABLET (FP) PO PRN (14:51)
[2021-05-20] MEDS ORDERED: methaDONE HCL 40 MG DISPERSABLE TABLET PO SCH (15:00)
[2021-05-20] MEDS ORDERED: ALBUTEROL SO4 HFA INHALER IH SCH (15:00)
[2021-05-20] MEDS: INSULIN SLIDING SCALE (NOVOLOG) 1 VIAL SQ SCH ×2 (16:40→21:21)
[2021-05-20] MEDS: hydrOXYzine PAMOATE 25 MG CAPSULE (FP) PO SCH ×2 (18:45→21:19)
[2021-05-20] MEDS: THIAMINE HCL 100 MG TABLET (FP) PO SCH (21:19)
[2021-05-20] MEDS ORDERED: MELATONIN 5 MG TABLETS PO SCH (22:00)
[2021-05-21] MEDS: INSULIN SLIDING SCALE (NOVOLOG) 1 VIAL SQ SCH ×3 (06:50→16:27)
[2021-05-21] MEDS: hydrOXYzine PAMOATE 25 MG CAPSULE (FP) PO SCH ×5 (06:50→21:20)
[2021-05-21] MEDS: methaDONE HCL 40 MG DISPERSABLE TABLET PO SCH (07:21)
[2021-05-21] MEDS: MINERAL OIL/PETROLAT/WATER TOPICAL CREAM 113 GM JAR TP SCH (09:46)
[2021-05-21] MEDS: CHLORTHALIDONE 25 MG TABLET PO SCH (09:46)
[2021-05-21] MEDS: amLODIPine BESYLATE 10 MG TABLET (FP) PO SCH (09:46)
[2021-05-21] MEDS: PRENATAL VITAMINS W/ FOLIC ACID TABLET (FP) PO SCH (09:46)
[2021-05-21] MEDS: FERROUS SO4 325 MG TABLET (FP) PO SCH (09:46)
[2021-05-21] MEDS: LORATADINE 10 MG TABLET PO SCH (09:46)
[2021-05-21 11:17] LABS: URINE APPEARANCE CLEAR; URINE BILIRUBIN NEGATIVE (NEGATIVE); URINE COLOR YELLOW; URINE GLUCOSE (UA) NEGATIVE (NEGATIVE); URINE KETONE NEGATIVE (NEGATIVE); URINE LEUK ESTERASE NEGATIVE (NEGATIVE); URINE NITRITE NEGATIVE (NEGATIVE); URINE PROTEIN NEGATIVE (NEGATIVE); URINE UROBILINOGEN 0.2 mg/dL (0.2-1.0)
[2021-05-21 11:19] LABS: CALCIUM 8.8 mg/dL (8.5-10.1); HEMATOCRIT 35.3 % (35.4-49); HEMOGLOBIN 11.3 GM/dL (11.7-16.9); MEAN CELL VOLUME 68.8 fl (80-96); PLATELET COUNT 269 10^3/uL (134-434); RBC 5.13 M/mm3 (4.00-5.60); RDW 16.5 % (11.9-15.9); WHITE BLOOD COUNT 6.1 K/mm3 (4.0-10.0)
[2021-05-21 11:20] LABS: ALBUMIN 3.2 g/dl (3.4-5.0); BLOOD UREA NITROGEN 40.3 mg/dL (7-18)
[2021-05-21 11:23] LABS: CREATININE 2.3 mg/dL (0.55-1.3)
[2021-05-21 11:24] LABS: BILIRUBIN,TOTAL 0.4 mg/dL (0.2-1)
[2021-05-21 11:25] LABS: TOT PROT 6.5 g/dl (6.4-8.2)
[2021-05-21 11:46] LABS: SYPHILIS W/ RPR CONF NON-REACTIVE (NONREACTIVE)
[2021-05-21] MEDS: THIAMINE HCL 100 MG TABLET (FP) PO SCH (21:20)
[2021-05-21] MEDS: PRAZOSIN HCL 1 MG CAPSULE PO SCH (21:22)
[2021-05-22] MEDS: hydrOXYzine PAMOATE 25 MG CAPSULE (FP) PO SCH ×5 (06:35→21:26)
[2021-05-22] MEDS: methaDONE HCL 40 MG DISPERSABLE TABLET PO SCH (06:35)
[2021-05-22] MEDS: INSULIN SLIDING SCALE (NOVOLOG) 1 VIAL SQ SCH ×2 (06:37→16:32)
[2021-05-22] MEDS: CHLORTHALIDONE 25 MG TABLET PO SCH (10:27)
[2021-05-22] MEDS: amLODIPine BESYLATE 10 MG TABLET (FP) PO SCH (10:28)
[2021-05-22] MEDS: FERROUS SO4 325 MG TABLET (FP) PO SCH (10:28)
[2021-05-22] MEDS: PRENATAL VITAMINS W/ FOLIC ACID TABLET (FP) PO SCH (10:28)
[2021-05-22] MEDS: LORATADINE 10 MG TABLET PO SCH (10:28)
[2021-05-22] MEDS: MINERAL OIL/PETROLAT/WATER TOPICAL CREAM 113 GM JAR TP SCH (10:30)
[2021-05-22] MEDS: PRAZOSIN HCL 1 MG CAPSULE PO SCH (21:26)
[2021-05-22] MEDS: THIAMINE HCL 100 MG TABLET (FP) PO SCH (21:26)
[2021-05-23] MEDS: INSULIN SLIDING SCALE (NOVOLOG) 1 VIAL SQ SCH ×2 (06:47→16:59)
[2021-05-23] MEDS: methaDONE HCL 40 MG DISPERSABLE TABLET PO SCH (06:47)
[2021-05-23] MEDS: hydrOXYzine PAMOATE 25 MG CAPSULE (FP) PO SCH ×5 (06:47→22:03)
[2021-05-23] MEDS: FERROUS SO4 325 MG TABLET (FP) PO SCH (10:10)
[2021-05-23] MEDS: LORATADINE 10 MG TABLET PO SCH (10:10)
[2021-05-23] MEDS: PRENATAL VITAMINS W/ FOLIC ACID TABLET (FP) PO SCH (10:10)
[2021-05-23] MEDS: MINERAL OIL/PETROLAT/WATER TOPICAL CREAM 113 GM JAR TP SCH (10:10)
[2021-05-23] MEDS: amLODIPine BESYLATE 10 MG TABLET (FP) PO SCH (10:10)
[2021-05-23] MEDS: CHLORTHALIDONE 25 MG TABLET PO SCH (10:10)
[2021-05-23] MEDS ORDERED: PT OWN MED DRAWER 7, Y5N ONE (19:15)
[2021-05-23] MEDS: THIAMINE HCL 100 MG TABLET (FP) PO SCH (22:03)
[2021-05-23] MEDS: PRAZOSIN HCL 1 MG CAPSULE PO SCH (22:04)
[2021-05-24] MEDS: hydrOXYzine PAMOATE 25 MG CAPSULE (FP) PO SCH ×5 (06:35→21:19)
[2021-05-24] MEDS: methaDONE HCL 40 MG DISPERSABLE TABLET PO SCH (06:35)
[2021-05-24] MEDS: INSULIN SLIDING SCALE (NOVOLOG) 1 VIAL SQ SCH ×2 (06:38→16:35)
[2021-05-24] MEDS: PRENATAL VITAMINS W/ FOLIC ACID TABLET (FP) PO SCH (10:27)
[2021-05-24] MEDS: FERROUS SO4 325 MG TABLET (FP) PO SCH (10:28)
[2021-05-24] MEDS: CHLORTHALIDONE 25 MG TABLET PO SCH (10:28)
[2021-05-24] MEDS: amLODIPine BESYLATE 10 MG TABLET (FP) PO SCH (10:28)
[2021-05-24] MEDS: LORATADINE 10 MG TABLET PO SCH (10:28)
[2021-05-24] MEDS: MINERAL OIL/PETROLAT/WATER TOPICAL CREAM 113 GM JAR TP SCH (10:29)
[2021-05-24] MEDS ORDERED: PT OWN MED DRAWER 7, Y5N ONE (18:33)
[2021-05-24] MEDS: THIAMINE HCL 100 MG TABLET (FP) PO SCH (21:19)
[2021-05-24] MEDS: PRAZOSIN HCL 1 MG CAPSULE PO SCH (21:55)
[2021-05-25] MEDS: hydrOXYzine PAMOATE 25 MG CAPSULE (FP) PO SCH ×5 (06:30→22:25)
[2021-05-25] MEDS: methaDONE HCL 40 MG DISPERSABLE TABLET PO SCH (06:31)
[2021-05-25] MEDS: INSULIN SLIDING SCALE (NOVOLOG) 1 VIAL SQ SCH ×2 (06:33→16:41)
[2021-05-25] MEDS ORDERED: PT OWN MED DRAWER 7, Y5N ONE ×2 (07:58→10:26)
[2021-05-25] MEDS: LORATADINE 10 MG TABLET PO SCH (10:26)
[2021-05-25] MEDS: amLODIPine BESYLATE 10 MG TABLET (FP) PO SCH (10:26)
[2021-05-25] MEDS: FERROUS SO4 325 MG TABLET (FP) PO SCH (10:26)
[2021-05-25] MEDS: PRENATAL VITAMINS W/ FOLIC ACID TABLET (FP) PO SCH (10:26)
[2021-05-25] MEDS: MINERAL OIL/PETROLAT/WATER TOPICAL CREAM 113 GM JAR TP SCH (10:26)
[2021-05-25] MEDS: CHLORTHALIDONE 25 MG TABLET PO SCH (10:34)
[2021-05-25] MEDS: THIAMINE HCL 100 MG TABLET (FP) PO SCH (22:25)
[2021-05-25] MEDS: PRAZOSIN HCL 1 MG CAPSULE PO SCH (22:25)
[2021-05-26] MEDS: methaDONE HCL 40 MG DISPERSABLE TABLET PO SCH (06:48)
[2021-05-26] MEDS: hydrOXYzine PAMOATE 25 MG CAPSULE (FP) PO SCH ×5 (06:48→21:39)
[2021-05-26] MEDS: INSULIN SLIDING SCALE (NOVOLOG) 1 VIAL SQ SCH ×2 (06:48→17:23)
[2021-05-26] MEDS ORDERED: PT OWN MED DRAWER 7, Y5N ONE ×2 (07:42→18:37)
[2021-05-26] MEDS: amLODIPine BESYLATE 10 MG TABLET (FP) PO SCH (09:13)
[2021-05-26] MEDS: LORATADINE 10 MG TABLET PO SCH (09:13)
[2021-05-26] MEDS: FERROUS SO4 325 MG TABLET (FP) PO SCH (09:13)
[2021-05-26] MEDS: PRENATAL VITAMINS W/ FOLIC ACID TABLET (FP) PO SCH (09:13)
[2021-05-26] MEDS: CHLORTHALIDONE 25 MG TABLET PO SCH (09:13)
[2021-05-26] MEDS: MINERAL OIL/PETROLAT/WATER TOPICAL CREAM 113 GM JAR TP SCH (09:13)
[2021-05-26] MEDS: PRAZOSIN HCL 1 MG CAPSULE PO SCH (21:39)
[2021-05-26] MEDS: THIAMINE HCL 100 MG TABLET (FP) PO SCH (21:39)
[2021-05-27] MEDS ORDERED: INSULIN (NOVOLOG) ASPART 100 UNITS/ML 10ML VIAL ONE (03:06)
[2021-05-27] MEDS: methaDONE HCL 40 MG DISPERSABLE TABLET PO SCH (06:29)
[2021-05-27] MEDS: hydrOXYzine PAMOATE 25 MG CAPSULE (FP) PO SCH ×5 (06:30→22:04)
[2021-05-27] MEDS: INSULIN SLIDING SCALE (NOVOLOG) 1 VIAL SQ SCH ×2 (06:32→17:09)
[2021-05-27] MEDS: FERROUS SO4 325 MG TABLET (FP) PO SCH (10:37)
[2021-05-27] MEDS: CHLORTHALIDONE 25 MG TABLET PO SCH (10:37)
[2021-05-27] MEDS: amLODIPine BESYLATE 10 MG TABLET (FP) PO SCH (10:37)
[2021-05-27] MEDS: LORATADINE 10 MG TABLET PO SCH (10:37)
[2021-05-27] MEDS: PRENATAL VITAMINS W/ FOLIC ACID TABLET (FP) PO SCH (10:37)
[2021-05-27] MEDS: MINERAL OIL/PETROLAT/WATER TOPICAL CREAM 113 GM JAR TP SCH (10:39)
[2021-05-27 17:16] LABS: BLOOD UREA NITROGEN 37.2 mg/dL (7-18); CALCIUM 9.1 mg/dL (8.5-10.1)
[2021-05-27 17:17] LABS: ALBUMIN 3.5 g/dl (3.4-5.0)
[2021-05-27 17:20] LABS: CREATININE 2.3 mg/dL (0.55-1.3)
[2021-05-27 17:21] LABS: BILIRUBIN,TOTAL 0.4 mg/dL (0.2-1); TOT PROT 7.3 g/dl (6.4-8.2)
[2021-05-27] MEDS ORDERED: PT OWN MED DRAWER 7, Y5N ONE (18:12)
[2021-05-27] MEDS: PRAZOSIN HCL 1 MG CAPSULE PO SCH (22:04)
[2021-05-27] MEDS: THIAMINE HCL 100 MG TABLET (FP) PO SCH (22:04)
[2021-05-28] MEDS: hydrOXYzine PAMOATE 25 MG CAPSULE (FP) PO SCH ×5 (06:43→21:33)
[2021-05-28] MEDS: methaDONE HCL 40 MG DISPERSABLE TABLET PO SCH (06:43)
[2021-05-28] MEDS: INSULIN SLIDING SCALE (NOVOLOG) 1 VIAL SQ SCH ×2 (06:44→16:50)
[2021-05-28] MEDS: ACETAMINOPHEN 325 MG TABLET (FP) PO PRN (06:46)
[2021-05-28] MEDS ORDERED: PT OWN MED DRAWER 7, Y5N ONE ×2 (08:35→18:31)
[2021-05-28] MEDS: CHLORTHALIDONE 25 MG TABLET PO SCH (10:48)
[2021-05-28] MEDS: MINERAL OIL/PETROLAT/WATER TOPICAL CREAM 113 GM JAR TP SCH (10:49)
[2021-05-28] MEDS: amLODIPine BESYLATE 10 MG TABLET (FP) PO SCH (10:49)
[2021-05-28] MEDS: FERROUS SO4 325 MG TABLET (FP) PO SCH (10:49)
[2021-05-28] MEDS: PRENATAL VITAMINS W/ FOLIC ACID TABLET (FP) PO SCH (10:52)
[2021-05-28] MEDS: LORATADINE 10 MG TABLET PO SCH (10:55)
[2021-05-28] MEDS: THIAMINE HCL 100 MG TABLET (FP) PO SCH (21:33)
[2021-05-28] MEDS: PRAZOSIN HCL 1 MG CAPSULE PO SCH (21:33)
[2021-05-29] MEDS: methaDONE HCL 40 MG DISPERSABLE TABLET PO SCH (07:08)
[2021-05-29] MEDS: hydrOXYzine PAMOATE 25 MG CAPSULE (FP) PO SCH ×5 (07:08→22:44)
[2021-05-29] MEDS: INSULIN SLIDING SCALE (NOVOLOG) 1 VIAL SQ SCH ×2 (07:11→17:03)
[2021-05-29] MEDS: ACETAMINOPHEN 325 MG TABLET (FP) PO PRN ×2 (07:14→18:06)
[2021-05-29] MEDS: PRENATAL VITAMINS W/ FOLIC ACID TABLET (FP) PO SCH (10:38)
[2021-05-29] MEDS: LORATADINE 10 MG TABLET PO SCH (10:39)
[2021-05-29] MEDS: FERROUS SO4 325 MG TABLET (FP) PO SCH (10:39)
[2021-05-29] MEDS: amLODIPine BESYLATE 10 MG TABLET (FP) PO SCH (10:39)
[2021-05-29] MEDS: CHLORTHALIDONE 25 MG TABLET PO SCH (10:39)
[2021-05-29] MEDS: MINERAL OIL/PETROLAT/WATER TOPICAL CREAM 113 GM JAR TP SCH (10:41)
[2021-05-29] MEDS: ALBUTEROL SO4 HFA INHALER IH PRN (17:01)
[2021-05-29] MEDS: MAGNESIUM HYDROX 2400MG/30ML ORAL SUSPENSION 30 ML CUP PO PRN (19:02)
[2021-05-29] MEDS: THIAMINE HCL 100 MG TABLET (FP) PO SCH (22:44)
[2021-05-29] MEDS: PRAZOSIN HCL 1 MG CAPSULE PO SCH (22:44)
[2021-05-30] MEDS: INSULIN SLIDING SCALE (NOVOLOG) 1 VIAL SQ SCH ×2 (06:52→17:41)
[2021-05-30] MEDS: methaDONE HCL 40 MG DISPERSABLE TABLET PO SCH (06:52)
[2021-05-30] MEDS: hydrOXYzine PAMOATE 25 MG CAPSULE (FP) PO SCH ×5 (06:52→21:25)
[2021-05-30] MEDS ORDERED: PT OWN MED DRAWER 7, Y5N ONE ×2 (07:25→08:27)
[2021-05-30] MEDS: LORATADINE 10 MG TABLET PO SCH (10:52)
[2021-05-30] MEDS: FERROUS SO4 325 MG TABLET (FP) PO SCH (10:52)
[2021-05-30] MEDS: PRENATAL VITAMINS W/ FOLIC ACID TABLET (FP) PO SCH (10:52)
[2021-05-30] MEDS: amLODIPine BESYLATE 10 MG TABLET (FP) PO SCH (10:52)
[2021-05-30] MEDS: MINERAL OIL/PETROLAT/WATER TOPICAL CREAM 113 GM JAR TP SCH (10:53)
[2021-05-30] MEDS: CHLORTHALIDONE 25 MG TABLET PO SCH (10:53)
[2021-05-30] MEDS: ACETAMINOPHEN 325 MG TABLET (FP) PO PRN (16:00)
[2021-05-30] MEDS: PRAZOSIN HCL 1 MG CAPSULE PO SCH (21:25)
[2021-05-30] MEDS: THIAMINE HCL 100 MG TABLET (FP) PO SCH (21:25)
[2021-05-31] MEDS: hydrOXYzine PAMOATE 25 MG CAPSULE (FP) PO SCH ×3 (06:30→14:07)
[2021-05-31] MEDS: methaDONE HCL 40 MG DISPERSABLE TABLET PO SCH (06:30)
[2021-05-31] MEDS: INSULIN SLIDING SCALE (NOVOLOG) 1 VIAL SQ SCH ×2 (06:32→16:42)
[2021-05-31] MEDS: FERROUS SO4 325 MG TABLET (FP) PO SCH (11:08)
[2021-05-31] MEDS: LORATADINE 10 MG TABLET PO SCH (11:08)
[2021-05-31] MEDS: amLODIPine BESYLATE 10 MG TABLET (FP) PO SCH (11:08)
[2021-05-31] MEDS: MINERAL OIL/PETROLAT/WATER TOPICAL CREAM 113 GM JAR TP SCH (11:09)
[2021-05-31] MEDS: CHLORTHALIDONE 25 MG TABLET PO SCH (11:09)
[2021-05-31] MEDS: PRENATAL VITAMINS W/ FOLIC ACID TABLET (FP) PO SCH (11:09)
[2021-05-31] MEDS ORDERED: hydrOXYzine PAMOATE 25 MG CAPSULE (FP) PO PRN ×2 (14:17→14:27)
[2021-05-31] MEDS: PRAZOSIN HCL 1 MG CAPSULE PO SCH (21:07)
[2021-05-31] MEDS: THIAMINE HCL 100 MG TABLET (FP) PO SCH (21:07)
[2021-06-01] MEDS: methaDONE HCL 40 MG DISPERSABLE TABLET PO SCH (07:10)
[2021-06-01] MEDS: INSULIN SLIDING SCALE (NOVOLOG) 1 VIAL SQ SCH ×2 (07:11→17:30)
[2021-06-01] MEDS: PRENATAL VITAMINS W/ FOLIC ACID TABLET (FP) PO SCH (09:54)
[2021-06-01] MEDS: amLODIPine BESYLATE 10 MG TABLET (FP) PO SCH (09:54)
[2021-06-01] MEDS: LORATADINE 10 MG TABLET PO SCH (09:54)
[2021-06-01] MEDS: CHLORTHALIDONE 25 MG TABLET PO SCH (09:54)
[2021-06-01] MEDS: FERROUS SO4 325 MG TABLET (FP) PO SCH (09:54)
[2021-06-01] MEDS: MINERAL OIL/PETROLAT/WATER TOPICAL CREAM 113 GM JAR TP SCH (09:56)
[2021-06-01] MEDS: THIAMINE HCL 100 MG TABLET (FP) PO SCH (21:43)
[2021-06-01] MEDS: PRAZOSIN HCL 1 MG CAPSULE PO SCH (21:44)
[2021-06-02] MEDS: methaDONE HCL 40 MG DISPERSABLE TABLET PO SCH (07:05)
[2021-06-02] MEDS: INSULIN SLIDING SCALE (NOVOLOG) 1 VIAL SQ SCH ×2 (07:48→17:17)
[2021-06-02] MEDS: CHLORTHALIDONE 25 MG TABLET PO SCH (10:30)
[2021-06-02] MEDS: LORATADINE 10 MG TABLET PO SCH (10:30)
[2021-06-02] MEDS: FERROUS SO4 325 MG TABLET (FP) PO SCH (10:30)
[2021-06-02] MEDS: amLODIPine BESYLATE 10 MG TABLET (FP) PO SCH (10:30)
[2021-06-02] MEDS: MINERAL OIL/PETROLAT/WATER TOPICAL CREAM 113 GM JAR TP SCH (10:30)
[2021-06-02] MEDS: PRENATAL VITAMINS W/ FOLIC ACID TABLET (FP) PO SCH (10:30)
[2021-06-02] MEDS: ALBUTEROL SO4 HFA INHALER IH PRN (10:31)
[2021-06-02] MEDS: MAGNESIUM HYDROX 2400MG/30ML ORAL SUSPENSION 30 ML CUP PO PRN (10:41)
[2021-06-02] MEDS: PRAZOSIN HCL 1 MG CAPSULE PO SCH (21:04)
[2021-06-02] MEDS: THIAMINE HCL 100 MG TABLET (FP) PO SCH (21:04)
[2021-06-03] MEDS: methaDONE HCL 40 MG DISPERSABLE TABLET PO SCH (06:45)
[2021-06-03] MEDS: INSULIN SLIDING SCALE (NOVOLOG) 1 VIAL SQ SCH ×2 (06:48→16:22)
[2021-06-03] MEDS: MINERAL OIL/PETROLAT/WATER TOPICAL CREAM 113 GM JAR TP SCH (10:33)
[2021-06-03] MEDS: LORATADINE 10 MG TABLET PO SCH (10:33)
[2021-06-03] MEDS: PRENATAL VITAMINS W/ FOLIC ACID TABLET (FP) PO SCH (10:33)
[2021-06-03] MEDS: FERROUS SO4 325 MG TABLET (FP) PO SCH (10:33)
[2021-06-03] MEDS: amLODIPine BESYLATE 10 MG TABLET (FP) PO SCH (10:33)
[2021-06-03] MEDS: CHLORTHALIDONE 25 MG TABLET PO SCH (10:33)
[2021-06-03] MEDS: THIAMINE HCL 100 MG TABLET (FP) PO SCH (21:55)
[2021-06-03] MEDS: PRAZOSIN HCL 1 MG CAPSULE PO SCH (21:56)
[2021-06-04] MEDS: methaDONE HCL 40 MG DISPERSABLE TABLET PO SCH (06:25)
[2021-06-04] MEDS: INSULIN SLIDING SCALE (NOVOLOG) 1 VIAL SQ SCH (06:26)
[2021-06-04 06:50] VITALS: BP 128/69; PULSE 60; TEMP 98.2
[2021-06-04] MEDS: CHLORTHALIDONE 25 MG TABLET PO SCH (09:12)
[2021-06-04] MEDS: MINERAL OIL/PETROLAT/WATER TOPICAL CREAM 113 GM JAR TP SCH (09:12)
[2021-06-04] MEDS: amLODIPine BESYLATE 10 MG TABLET (FP) PO SCH (09:12)
[2021-06-04] MEDS: FERROUS SO4 325 MG TABLET (FP) PO SCH (09:12)
[2021-06-04] MEDS: LORATADINE 10 MG TABLET PO SCH (09:12)
[2021-06-04] MEDS: PRENATAL VITAMINS W/ FOLIC ACID TABLET (FP) PO SCH (09:12)
== END 2021-06-04 09:20 | disposition home or self-care (01) | DRG 772 ==
LOC: YASAS 09:40 → Y3W 14:59
PROVIDERS: ADMIT Allergy & Immunology; ATTEND Allergy & Immunology
PROC: HZ42ZZZ Group Counseling for Substance Abuse Treatment, Cognitive-Behavioral (ICD-10-PCS; principal; 2021-05-20)
DX: F11.20 Opioid dependence, uncomplicated (principal); F10.20 Alcohol dependence, uncomplicated; F14.20 Cocaine dependence, uncomplicated; F12.20 Cannabis dependence, uncomplicated; F43.10 Post-traumatic stress disorder, unspecified; D64.9 Anemia, unspecified; E78.5 Hyperlipidemia, unspecified; E11.9 Type 2 diabetes mellitus without complications; I12.9 Hypertensive chronic kidney disease with stage 1 through stage 4 chronic kidney disease, or unspecified chronic kidney disease; N18.9 Chronic kidney disease, unspecified; R79.89 Other specified abnormal findings of blood chemistry; E66.9 Obesity, unspecified; Z68.37 Body mass index [BMI] 37.0-37.9, adult; Z59.0 Homelessness; Z88.8 Allergy status to other drugs, medicaments and biological substances; Z91.013 Allergy to seafood; Z56.0 Unemployment, unspecified; Z87.891 Personal history of nicotine dependence
CPT/HCPCS: 36415; 80053; 81003; 82962; 85027; 86780; 86803; C9803; U0003; U0005

== ENCOUNTER 2021-11-19 12:30 | Inpatient (IN) | payer OTHER ==
[2021-11-19] MEDS ORDERED: MENTHOL/PHENOL 1 EACH UD MM PRN (12:53)
[2021-11-19] MEDS ORDERED: ONDANSETRON *ODT* 4 MG TABLET SL PRN (12:53)
[2021-11-19] MEDS ORDERED: MAG HYDROX/AL HYDROX/SIMETH 30 ML UNIT-DOSE CUP PO PRN (12:53)
[2021-11-19] MEDS ORDERED: LOPERAMIDE HCL 2 MG CAPSULE PO PRN (12:53)
[2021-11-19] MEDS ORDERED: ACETAMINOPHEN 325 MG TABLET (FP) PO PRN ×2 (12:53)
[2021-11-19] MEDS ORDERED: IBUPROFEN 400 MG TABLET (FP) PO PRN (12:53)
[2021-11-19] MEDS ORDERED: MAGNESIUM CITRATE 300 ML BOTTLE PO PRN (12:53)
[2021-11-19] MEDS ORDERED: MAGNESIUM HYDROX 2400MG/30ML ORAL SUSPENSION 30 ML CUP PO PRN (12:53)
[2021-11-19] MEDS ORDERED: BISMUTH SUBSALICYLATE 524 MG/30 ML PO PRN (12:53)
[2021-11-19 14:57] VITALS: BMI 38.2
[2021-11-19] MEDS ORDERED: DEXTROSE 50%-WATER - 25 GM/50 ML VIAL IVPUSH PRN (16:06)
[2021-11-19] MEDS ORDERED: ALBUTEROL SO4 HFA INHALER IH PRN (16:09)
[2021-11-19 16:12] LABS: HEMATOCRIT 35.9 % (35.4-49); MCH 21.5 pg (25.7-33.7); MCHC 30.8 g/dl (32.0-35.9); MEAN CELL VOLUME 69.7 fl (80-96); MEAN PLT VOLUME 7.4 fl (7.5-11.1); PLATELET COUNT 321 10^3/uL (134-434); RBC 5.15 M/mm3 (4.00-5.60); RDW 17.2 % (11.9-15.9); WHITE BLOOD COUNT 6.3 K/mm3 (4.0-10.0)
[2021-11-19] MEDS: INSULIN (NOVOLOG) ASPART 100 UNITS/ML 10ML VIAL SQ SCH ×2 (16:55→23:19)
[2021-11-19 17:11] LABS: ALBUMIN 3.4 g/dl (3.4-5.0); BLOOD UREA NITROGEN 29.8 mg/dL (7-18); CALCIUM 8.8 mg/dL (8.5-10.1)
[2021-11-19 17:14] LABS: CREATININE 2.2 mg/dL (0.55-1.3)
[2021-11-19 17:16] LABS: BILIRUBIN,TOTAL 0.4 mg/dL (0.2-1)
[2021-11-19] MEDS: hydrOXYzine PAMOATE 25 MG CAPSULE (FP) PO SCH ×3 (18:13→23:17)
[2021-11-19] MEDS: PRENATAL VITAMINS W/ FOLIC ACID TABLET (FP) PO SCH (18:14)
[2021-11-19] MEDS ORDERED: MELATONIN 5 MG TABLETS PO SCH (22:00)
[2021-11-19] MEDS ORDERED: THIAMINE HCL 100 MG TABLET (FP) PO SCH (22:00)
[2021-11-20] MEDS: METHOCARBAMOL 500 MG TABLET PO PRN ×2 (02:30→10:36)
[2021-11-20] MEDS: hydrOXYzine PAMOATE 25 MG CAPSULE (FP) PO SCH ×2 (06:29→10:35)
[2021-11-20] MEDS: INSULIN (NOVOLOG) ASPART 100 UNITS/ML 10ML VIAL SQ SCH ×2 (07:36→12:06)
[2021-11-20] MEDS ORDERED: FERROUS SO4 325 MG TABLET (FP) PO SCH (10:00)
[2021-11-20] MEDS ORDERED: amLODIPine BESYLATE 10 MG TABLET (FP) PO SCH (10:00)
[2021-11-20] MEDS ORDERED: LORATADINE 10 MG TABLET PO SCH (10:00)
[2021-11-20] MEDS: PRENATAL VITAMINS W/ FOLIC ACID TABLET (FP) PO SCH (10:35)
[2021-11-20 12:43] VITALS: BP 138/59; PULSE 55; TEMP 98.3
[2021-11-20] MEDS ORDERED: SUVOREXANT 10 MG TABLET PO PRN (22:00)
== END 2021-11-20 12:40 | disposition other institution (70) | DRG 773 ==
LOC: YASAS 12:30 → Y6N 15:12
PROVIDERS: ADMIT Allergy & Immunology; ATTEND Allergy & Immunology
PROC: HZ2ZZZZ Detoxification Services for Substance Abuse Treatment (ICD-10-PCS; principal; 2021-11-19)
DX: F10.230 Alcohol dependence with withdrawal, uncomplicated (principal); F11.20 Opioid dependence, uncomplicated; F12.20 Cannabis dependence, uncomplicated; F17.210 Nicotine dependence, cigarettes, uncomplicated; F19.282 Other psychoactive substance dependence with psychoactive substance-induced sleep disorder; F19.24 Other psychoactive substance dependence with psychoactive substance-induced mood disorder; F41.9 Anxiety disorder, unspecified; F43.10 Post-traumatic stress disorder, unspecified; D50.9 Iron deficiency anemia, unspecified; E11.9 Type 2 diabetes mellitus without complications; J45.20 Mild intermittent asthma, uncomplicated; E66.9 Obesity, unspecified; Z68.38 Body mass index [BMI] 38.0-38.9, adult; Z86.11 Personal history of tuberculosis; Z88.8 Allergy status to other drugs, medicaments and biological substances; Z91.013 Allergy to seafood; Z56.0 Unemployment, unspecified; Z59.00 Homelessness unspecified
CPT/HCPCS: 36415; 80053; 82962; 85027; 86780; C9803; U0003; U0005

== ENCOUNTER 2021-11-20 13:13 | Inpatient (IN) | payer OTHER ==
[~2021-11-20 13:13] MED LIST: ACETAMINOPHEN 325 MG TABLET (FP) PO PRN; IBUPROFEN 400 MG TABLET (FP) PO PRN; LOPERAMIDE HCL 2 MG CAPSULE PO PRN; MAG HYDROX/AL HYDROX/SIMETH 30 ML UNIT-DOSE CUP PO PRN; MAGNESIUM CITRATE 300 ML BOTTLE PO PRN; NICOTINE 10 MG CARTRIDGE (INHALER) IH PRN; P-EPHED 60MG/TRIPROLIDI 2.5MG TABLET PO PRN; guaiFENesin 200 MG/10 ML 10 ML UNIT-DOSE CUPS PO PRN
[2021-11-20] MEDS ORDERED: methaDONE HCL 10 MG TABLET ONE (13:36)
[2021-11-20] MEDS ORDERED: methaDONE HCL 40 MG DISPERSABLE TABLET ONE (13:36)
[2021-11-20] MEDS: hydrOXYzine PAMOATE 25 MG CAPSULE (FP) PO SCH ×3 (13:40→21:41)
[2021-11-20] MEDS ORDERED: methaDONE HCL 10 MG TABLET PO ONE (14:00)
[2021-11-20] MEDS: INSULIN SLIDING SCALE (NOVOLOG) 1 VIAL SQ SCH ×2 (17:07→21:49)
[2021-11-20] MEDS: MELATONIN 5 MG TABLETS PO SCH (21:41)
[2021-11-20] MEDS: THIAMINE HCL 100 MG TABLET (FP) PO SCH (21:41)
[2021-11-21] MEDS ORDERED: INSULIN (NOVOLOG) ASPART 100 UNITS/ML 10ML VIAL ONE (02:59)
[2021-11-21] MEDS ORDERED: methaDONE HCL 10 MG TABLET PO SCH (06:00)
[2021-11-21] MEDS: hydrOXYzine PAMOATE 25 MG CAPSULE (FP) PO SCH ×3 (06:06→14:26)
[2021-11-21] MEDS ORDERED: methaDONE HCL 10 MG TABLET ONE (06:17)
[2021-11-21] MEDS ORDERED: methaDONE HCL 40 MG DISPERSABLE TABLET ONE (06:18)
[2021-11-21] MEDS: INSULIN SLIDING SCALE (NOVOLOG) 1 VIAL SQ SCH ×4 (06:45→21:17)
[2021-11-21] MEDS: PRENATAL VITAMINS W/ FOLIC ACID TABLET (FP) PO SCH (09:48)
[2021-11-21] MEDS: NICOTINE 7 MG/24 HOURS TOPICAL PATCH TD SCH (09:49)
[2021-11-21] MEDS: amLODIPine BESYLATE 10 MG TABLET (FP) PO SCH (09:49)
[2021-11-21] MEDS: LORATADINE 10 MG TABLET PO SCH (09:49)
[2021-11-21] MEDS: MELATONIN 5 MG TABLETS PO SCH (21:15)
[2021-11-21] MEDS: hydrOXYzine PAMOATE 25 MG CAPSULE (FP) PO PRN (21:16)
[2021-11-21] MEDS: THIAMINE HCL 100 MG TABLET (FP) PO SCH (21:16)
[2021-11-22] MEDS ORDERED: methaDONE HCL 10 MG TABLET ONE (05:09)
[2021-11-22] MEDS ORDERED: methaDONE HCL 40 MG DISPERSABLE TABLET ONE (05:10)
[2021-11-22] MEDS: INSULIN SLIDING SCALE (NOVOLOG) 1 VIAL SQ SCH ×4 (06:23→22:50)
[2021-11-22] MEDS: LORATADINE 10 MG TABLET PO SCH (09:52)
[2021-11-22] MEDS: NICOTINE 7 MG/24 HOURS TOPICAL PATCH TD SCH (09:52)
[2021-11-22] MEDS: PRENATAL VITAMINS W/ FOLIC ACID TABLET (FP) PO SCH (09:52)
[2021-11-22] MEDS: amLODIPine BESYLATE 10 MG TABLET (FP) PO SCH (09:52)
[2021-11-22] MEDS: THIAMINE HCL 100 MG TABLET (FP) PO SCH (21:58)
[2021-11-22] MEDS: MELATONIN 5 MG TABLETS PO SCH (21:58)
[2021-11-23] MEDS ORDERED: methaDONE HCL 10 MG TABLET ONE (04:20)
[2021-11-23] MEDS ORDERED: methaDONE HCL 40 MG DISPERSABLE TABLET ONE (04:20)
[2021-11-23] MEDS: INSULIN SLIDING SCALE (NOVOLOG) 1 VIAL SQ SCH ×4 (07:05→21:32)
[2021-11-23] MEDS: LORATADINE 10 MG TABLET PO SCH (09:44)
[2021-11-23] MEDS: amLODIPine BESYLATE 10 MG TABLET (FP) PO SCH (09:44)
[2021-11-23] MEDS: PRENATAL VITAMINS W/ FOLIC ACID TABLET (FP) PO SCH (09:44)
[2021-11-23] MEDS: NICOTINE 7 MG/24 HOURS TOPICAL PATCH TD SCH (09:44)
[2021-11-23] MEDS: MAGNESIUM HYDROX 2400MG/30ML ORAL SUSPENSION 30 ML CUP PO PRN (09:57)
[2021-11-23] MEDS: MELATONIN 5 MG TABLETS PO SCH (21:32)
[2021-11-23] MEDS: THIAMINE HCL 100 MG TABLET (FP) PO SCH (21:32)
[2021-11-23] MEDS: hydrOXYzine PAMOATE 25 MG CAPSULE (FP) PO PRN (21:32)
[2021-11-24] MEDS ORDERED: methaDONE HCL 40 MG DISPERSABLE TABLET ONE (02:43)
[2021-11-24] MEDS ORDERED: methaDONE HCL 10 MG TABLET ONE (02:43)
[2021-11-24] MEDS: MAGNESIUM HYDROX 2400MG/30ML ORAL SUSPENSION 30 ML CUP PO PRN (06:14)
[2021-11-24] MEDS: INSULIN SLIDING SCALE (NOVOLOG) 1 VIAL SQ SCH ×4 (06:22→22:04)
[2021-11-24] MEDS: NICOTINE 7 MG/24 HOURS TOPICAL PATCH TD SCH (09:52)
[2021-11-24] MEDS: amLODIPine BESYLATE 10 MG TABLET (FP) PO SCH (09:52)
[2021-11-24] MEDS: PRENATAL VITAMINS W/ FOLIC ACID TABLET (FP) PO SCH (09:52)
[2021-11-24] MEDS: LORATADINE 10 MG TABLET PO SCH (09:52)
[2021-11-24] MEDS: MELATONIN 5 MG TABLETS PO SCH (22:04)
[2021-11-24] MEDS: THIAMINE HCL 100 MG TABLET (FP) PO SCH (22:04)
[2021-11-24] MEDS: hydrOXYzine PAMOATE 25 MG CAPSULE (FP) PO PRN (22:05)
[2021-11-25] MEDS ORDERED: methaDONE HCL 10 MG TABLET ONE (05:00)
[2021-11-25] MEDS ORDERED: methaDONE HCL 40 MG DISPERSABLE TABLET ONE (05:00)
[2021-11-25] MEDS: INSULIN SLIDING SCALE (NOVOLOG) 1 VIAL SQ SCH ×4 (06:54→21:23)
[2021-11-25] MEDS: LORATADINE 10 MG TABLET PO SCH (09:46)
[2021-11-25] MEDS: PRENATAL VITAMINS W/ FOLIC ACID TABLET (FP) PO SCH (09:46)
[2021-11-25] MEDS: amLODIPine BESYLATE 10 MG TABLET (FP) PO SCH (09:46)
[2021-11-25] MEDS: NICOTINE 7 MG/24 HOURS TOPICAL PATCH TD SCH (09:46)
[2021-11-25] MEDS: CLOTRIMAZOLE/BETAMET DIPROP 15 GM TUBE TP SCH ×2 (12:05→21:27)
[2021-11-25] MEDS: hydrOXYzine PAMOATE 25 MG CAPSULE (FP) PO PRN (21:27)
[2021-11-25] MEDS: THIAMINE HCL 100 MG TABLET (FP) PO SCH (21:27)
[2021-11-25] MEDS: MELATONIN 5 MG TABLETS PO SCH (21:27)
[2021-11-26] MEDS ORDERED: methaDONE HCL 10 MG TABLET ONE (03:52)
[2021-11-26] MEDS ORDERED: methaDONE HCL 40 MG DISPERSABLE TABLET ONE (03:52)
[2021-11-26] MEDS: INSULIN SLIDING SCALE (NOVOLOG) 1 VIAL SQ SCH ×2 (06:30→11:38)
[2021-11-26] MEDS: LORATADINE 10 MG TABLET PO SCH (09:33)
[2021-11-26] MEDS: CLOTRIMAZOLE/BETAMET DIPROP 15 GM TUBE TP SCH ×2 (09:33→21:09)
[2021-11-26] MEDS: amLODIPine BESYLATE 10 MG TABLET (FP) PO SCH (09:34)
[2021-11-26] MEDS: PRENATAL VITAMINS W/ FOLIC ACID TABLET (FP) PO SCH (09:34)
[2021-11-26] MEDS: NICOTINE 7 MG/24 HOURS TOPICAL PATCH TD SCH (09:34)
[2021-11-26] MEDS: MELATONIN 5 MG TABLETS PO SCH (21:09)
[2021-11-26] MEDS: THIAMINE HCL 100 MG TABLET (FP) PO SCH (21:09)
[2021-11-27] MEDS ORDERED: methaDONE HCL 10 MG TABLET ONE (02:56)
[2021-11-27] MEDS ORDERED: methaDONE HCL 40 MG DISPERSABLE TABLET ONE (02:57)
[2021-11-27] MEDS: PRENATAL VITAMINS W/ FOLIC ACID TABLET (FP) PO SCH (09:45)
[2021-11-27] MEDS: LORATADINE 10 MG TABLET PO SCH (09:45)
[2021-11-27] MEDS: amLODIPine BESYLATE 10 MG TABLET (FP) PO SCH (09:45)
[2021-11-27] MEDS: NICOTINE 7 MG/24 HOURS TOPICAL PATCH TD SCH (09:45)
[2021-11-27] MEDS: CLOTRIMAZOLE/BETAMET DIPROP 15 GM TUBE TP SCH ×2 (13:23→22:13)
[2021-11-27] MEDS: MELATONIN 5 MG TABLETS PO SCH (21:18)
[2021-11-27] MEDS: hydrOXYzine PAMOATE 25 MG CAPSULE (FP) PO PRN (21:18)
[2021-11-27] MEDS: THIAMINE HCL 100 MG TABLET (FP) PO SCH (21:18)
[2021-11-28] MEDS ORDERED: methaDONE HCL 10 MG TABLET ONE (06:10)
[2021-11-28] MEDS ORDERED: methaDONE HCL 40 MG DISPERSABLE TABLET ONE (06:11)
[2021-11-28] MEDS: PRENATAL VITAMINS W/ FOLIC ACID TABLET (FP) PO SCH (09:46)
[2021-11-28] MEDS: amLODIPine BESYLATE 10 MG TABLET (FP) PO SCH (09:47)
[2021-11-28] MEDS: LORATADINE 10 MG TABLET PO SCH (09:47)
[2021-11-28] MEDS: CLOTRIMAZOLE/BETAMET DIPROP 15 GM TUBE TP SCH ×2 (09:47→21:11)
[2021-11-28] MEDS: NICOTINE 7 MG/24 HOURS TOPICAL PATCH TD SCH (09:48)
[2021-11-28 14:45] LABS: HEMATOCRIT 35.7 % (35.4-49); HEMOGLOBIN 11.4 GM/dL (11.7-16.9); MCH 22.2 pg (25.7-33.7); MEAN CELL VOLUME 69.5 fl (80-96); MEAN PLT VOLUME 7.2 fl (7.5-11.1); PLATELET COUNT 286 10^3/uL (134-434); RBC 5.14 M/mm3 (4.00-5.60); RDW 16.9 % (11.9-15.9); WHITE BLOOD COUNT 5.9 K/mm3 (4.0-10.0)
[2021-11-28 14:47] LABS: INR 0.98 (0.83-1.09); PROTHROMBIN TIME (PATIENT) 11.3 SEC (9.7-13.0)
[2021-11-28 15:22] LABS: ALBUMIN 3.6 g/dl (3.4-5.0); BLOOD UREA NITROGEN 29.2 mg/dL (7-18)
[2021-11-28 15:25] LABS: CREATININE 1.8 mg/dL (0.55-1.3)
[2021-11-28 15:26] LABS: BILIRUBIN,TOTAL 0.4 mg/dL (0.2-1); TOT PROT 7.1 g/dl (6.4-8.2)
[2021-11-28] MEDS: THIAMINE HCL 100 MG TABLET (FP) PO SCH (21:11)
[2021-11-28] MEDS: MELATONIN 5 MG TABLETS PO SCH (21:11)
[2021-11-29] MEDS ORDERED: methaDONE HCL 10 MG TABLET ONE (05:08)
[2021-11-29] MEDS ORDERED: methaDONE HCL 40 MG DISPERSABLE TABLET ONE (05:08)
[2021-11-29] MEDS: amLODIPine BESYLATE 10 MG TABLET (FP) PO SCH (10:10)
[2021-11-29] MEDS: LORATADINE 10 MG TABLET PO SCH (10:10)
[2021-11-29] MEDS: NICOTINE 7 MG/24 HOURS TOPICAL PATCH TD SCH (10:10)
[2021-11-29] MEDS: CLOTRIMAZOLE/BETAMET DIPROP 15 GM TUBE TP SCH ×2 (10:10→21:18)
[2021-11-29] MEDS: PRENATAL VITAMINS W/ FOLIC ACID TABLET (FP) PO SCH (10:11)
[2021-11-29] MEDS: MAGNESIUM HYDROX 2400MG/30ML ORAL SUSPENSION 30 ML CUP PO PRN (21:19)
[2021-11-29] MEDS: MELATONIN 5 MG TABLETS PO SCH (21:19)
[2021-11-29] MEDS: THIAMINE HCL 100 MG TABLET (FP) PO SCH (21:26)
[2021-11-30] MEDS ORDERED: methaDONE HCL 10 MG TABLET ONE (03:56)
[2021-11-30] MEDS ORDERED: methaDONE HCL 40 MG DISPERSABLE TABLET ONE (03:56)
[2021-11-30] MEDS: LORATADINE 10 MG TABLET PO SCH (09:33)
[2021-11-30] MEDS: PRENATAL VITAMINS W/ FOLIC ACID TABLET (FP) PO SCH (09:34)
[2021-11-30] MEDS: NICOTINE 7 MG/24 HOURS TOPICAL PATCH TD SCH (09:34)
[2021-11-30] MEDS: amLODIPine BESYLATE 10 MG TABLET (FP) PO SCH (09:34)
[2021-11-30] MEDS: CLOTRIMAZOLE/BETAMET DIPROP 15 GM TUBE TP SCH ×2 (09:35→21:13)
[2021-11-30] MEDS: MELATONIN 5 MG TABLETS PO SCH (21:13)
[2021-11-30] MEDS: THIAMINE HCL 100 MG TABLET (FP) PO SCH (21:13)
[2021-12-01] MEDS ORDERED: methaDONE HCL 10 MG TABLET ONE (03:32)
[2021-12-01] MEDS ORDERED: methaDONE HCL 40 MG DISPERSABLE TABLET ONE (03:32)
[2021-12-01] MEDS: LORATADINE 10 MG TABLET PO SCH (10:00)
[2021-12-01] MEDS: amLODIPine BESYLATE 10 MG TABLET (FP) PO SCH (10:00)
[2021-12-01] MEDS: PRENATAL VITAMINS W/ FOLIC ACID TABLET (FP) PO SCH (10:00)
[2021-12-01] MEDS: CLOTRIMAZOLE/BETAMET DIPROP 15 GM TUBE TP SCH ×2 (10:01→22:33)
[2021-12-01] MEDS: NICOTINE 7 MG/24 HOURS TOPICAL PATCH TD SCH (10:01)
[2021-12-01] MEDS: MELATONIN 5 MG TABLETS PO SCH (22:33)
[2021-12-01] MEDS: THIAMINE HCL 100 MG TABLET (FP) PO SCH (22:33)
[2021-12-02] MEDS ORDERED: methaDONE HCL 10 MG TABLET ONE (02:40)
[2021-12-02] MEDS ORDERED: methaDONE HCL 40 MG DISPERSABLE TABLET ONE (02:41)
[2021-12-02 07:05] VITALS: TEMP 97.6
[2021-12-02] MEDS: PRENATAL VITAMINS W/ FOLIC ACID TABLET (FP) PO SCH (10:14)
[2021-12-02] MEDS: amLODIPine BESYLATE 10 MG TABLET (FP) PO SCH (10:14)
[2021-12-02] MEDS: LORATADINE 10 MG TABLET PO SCH (10:14)
[2021-12-02] MEDS: NICOTINE 7 MG/24 HOURS TOPICAL PATCH TD SCH (10:14)
[2021-12-02] MEDS: CLOTRIMAZOLE/BETAMET DIPROP 15 GM TUBE TP SCH (10:15)
[2021-12-02 10:16] VITALS: BP 147/70; PULSE 59
== END 2021-12-02 11:35 | disposition home or self-care (01) | DRG 772 ==
LOC: YASAS 13:13 → Y5N 13:14
PROVIDERS: ADMIT Allergy & Immunology; ATTEND Allergy & Immunology
PROC: HZ42ZZZ Group Counseling for Substance Abuse Treatment, Cognitive-Behavioral (ICD-10-PCS; principal; 2021-11-20)
DX: F10.20 Alcohol dependence, uncomplicated (principal); F11.20 Opioid dependence, uncomplicated; F17.210 Nicotine dependence, cigarettes, uncomplicated; F41.9 Anxiety disorder, unspecified; D64.9 Anemia, unspecified; I10 Essential (primary) hypertension; J45.20 Mild intermittent asthma, uncomplicated; E11.9 Type 2 diabetes mellitus without complications; E66.9 Obesity, unspecified; Z68.30 Body mass index [BMI] 30.0-30.9, adult; Z96.651 Presence of right artificial knee joint; Z88.0 Allergy status to penicillin; Z91.013 Allergy to seafood; Z59.02 Unsheltered homelessness
CPT/HCPCS: 36415; 71046-TC-FY; 80053; 82962; 85027; 85610; C9803; U0003; U0005

== ENCOUNTER 2022-02-11 14:21 | Inpatient (IN) | payer OTHER ==
[2022-02-11] MEDS ORDERED: METHOCARBAMOL 500 MG TABLET PO PRN (15:51)
[2022-02-11] MEDS ORDERED: IBUPROFEN 400 MG TABLET (FP) PO PRN (15:51)
[2022-02-11] MEDS ORDERED: BENZOCAINE/MENTHOL (CHLORASEPTIC ) LOZENGE MM PRN (15:51)
[2022-02-11] MEDS ORDERED: MAGNESIUM HYDROX 2400MG/30ML ORAL SUSPENSION 30 ML CUP PO PRN (15:51)
[2022-02-11] MEDS ORDERED: ONDANSETRON *ODT* 4 MG TABLET SL PRN (15:51)
[2022-02-11] MEDS ORDERED: DICYCLOMINE HCL 10 MG CAPSULE PO PRN (15:51)
[2022-02-11] MEDS ORDERED: BISMUTH SUBSALICYLATE 524 MG/30 ML PO PRN (15:51)
[2022-02-11] MEDS ORDERED: MAG HYDROX/AL HYDROX/SIMETH 30 ML UNIT-DOSE CUP PO PRN (15:51)
[2022-02-11] MEDS ORDERED: LOPERAMIDE HCL 2 MG CAPSULE PO PRN (15:51)
[2022-02-11] MEDS ORDERED: ACETAMINOPHEN 325 MG TABLET (FP) PO PRN ×2 (15:51)
[2022-02-11] MEDS ORDERED: NICOTINE 10 MG CARTRIDGE (INHALER) IH PRN (15:51)
[2022-02-11] MEDS ORDERED: MAGNESIUM CITRATE 300 ML BOTTLE PO PRN (15:51)
[2022-02-11 21:34] VITALS: BMI 38.6
[2022-02-11] MEDS: THIAMINE HCL 100 MG TABLET (FP) PO SCH (22:21)
[2022-02-11] MEDS: hydrOXYzine PAMOATE 25 MG CAPSULE (FP) PO SCH ×2 (22:21→22:31)
[2022-02-11] MEDS: MELATONIN 5 MG TABLETS PO SCH (22:21)
[2022-02-12] MEDS: hydrOXYzine PAMOATE 25 MG CAPSULE (FP) PO SCH ×4 (07:43→23:37)
[2022-02-12] MEDS ORDERED: methaDONE HCL 10 MG TABLET PO ONE (08:24)
[2022-02-12] MEDS ORDERED: methaDONE HCL 40 MG DISPERSABLE TABLET ONE (09:48)
[2022-02-12] MEDS ORDERED: methaDONE HCL 10 MG TABLET ONE (09:48)
[2022-02-12] MEDS: PRENATAL VITAMINS W/ FOLIC ACID TABLET (FP) PO SCH (10:26)
[2022-02-12 11:08] LABS: HEMATOCRIT 33.9 % (35.4-49); HEMOGLOBIN 10.8 GM/dL (11.7-16.9); MCHC 31.8 g/dl (32.0-35.9); MEAN CELL VOLUME 69.3 fl (80-96); MEAN PLT VOLUME 7.3 fl (7.5-11.1); PLATELET COUNT 276 10^3/uL (134-434); RDW 17.2 % (11.9-15.9); WHITE BLOOD COUNT 5.9 K/mm3 (4.0-10.0)
[2022-02-12 11:21] LABS: CALCIUM 8.7 mg/dL (8.5-10.1)
[2022-02-12 11:25] LABS: CREATININE 1.7 mg/dL (0.55-1.3)
[2022-02-12 11:26] LABS: BILIRUBIN,TOTAL 0.3 mg/dL (0.2-1)
[2022-02-12 11:27] LABS: TOT PROT 5.9 g/dl (6.4-8.2)
[2022-02-12] MEDS: CHLORTHALIDONE 25 MG TABLET PO SCH (12:29)
[2022-02-12] MEDS: amLODIPine BESYLATE 10 MG TABLET (FP) PO SCH (12:29)
[2022-02-12 14:08] LABS: SARS-CoV-2 NAA Not Detected (Not Detected)
[2022-02-12] MEDS ORDERED: PRAZOSIN HCL 1 MG CAPSULE PO SCH (22:00)
[2022-02-12] MEDS: MELATONIN 5 MG TABLETS PO SCH (23:37)
[2022-02-12] MEDS: THIAMINE HCL 100 MG TABLET (FP) PO SCH (23:37)
[2022-02-13] MEDS: hydrOXYzine PAMOATE 25 MG CAPSULE (FP) PO SCH ×3 (00:51→09:43)
[2022-02-13] MEDS ORDERED: methaDONE HCL 40 MG DISPERSABLE TABLET ONE (04:18)
[2022-02-13] MEDS ORDERED: methaDONE HCL 10 MG TABLET ONE (04:18)
[2022-02-13] MEDS ORDERED: methaDONE HCL 10 MG TABLET PO SCH (06:00)
[2022-02-13 06:37] VITALS: BP 113/58; PULSE 60; TEMP 97.3
[2022-02-13] MEDS: PRENATAL VITAMINS W/ FOLIC ACID TABLET (FP) PO SCH (09:43)
[2022-02-13] MEDS: amLODIPine BESYLATE 10 MG TABLET (FP) PO SCH (09:43)
[2022-02-13] MEDS: CHLORTHALIDONE 25 MG TABLET PO SCH (09:43)
[2022-02-13 20:08] LABS: SARS-CoV-2 NAA Not Detected (Not Detected)
== END 2022-02-13 09:38 | disposition home or self-care (01) | DRG 773 ==
LOC: YASAS 14:21 → Y3N 20:13
PROVIDERS: ADMIT Allergy & Immunology; ATTEND Allergy & Immunology
PROC: HZ2ZZZZ Detoxification Services for Substance Abuse Treatment (ICD-10-PCS; principal; 2022-02-11)
DX: F10.230 Alcohol dependence with withdrawal, uncomplicated (principal); F11.20 Opioid dependence, uncomplicated; F12.20 Cannabis dependence, uncomplicated; F17.210 Nicotine dependence, cigarettes, uncomplicated; F43.10 Post-traumatic stress disorder, unspecified; D50.9 Iron deficiency anemia, unspecified; E11.9 Type 2 diabetes mellitus without complications; I10 Essential (primary) hypertension; J45.909 Unspecified asthma, uncomplicated; D57.3 Sickle-cell trait; E66.9 Obesity, unspecified; Z68.39 Body mass index [BMI] 39.0-39.9, adult; Z87.820 Personal history of traumatic brain injury; Z98.890 Other specified postprocedural states; Z86.11 Personal history of tuberculosis; Z88.8 Allergy status to other drugs, medicaments and biological substances; Z91.013 Allergy to seafood
CPT/HCPCS: 36415; 80053; 85027; 86780; C9803-CS; U0003; U0005

== ENCOUNTER 2022-02-25 15:32 | Inpatient (IN) | payer OTHER ==
[2022-02-25 16:17] VITALS: BMI 37.4
[2022-02-25] MEDS ORDERED: guaiFENesin 200 MG/10 ML 10 ML UNIT-DOSE CUPS PO PRN (16:57)
[2022-02-25] MEDS ORDERED: ACETAMINOPHEN 325 MG TABLET (FP) PO PRN (16:57)
[2022-02-25] MEDS ORDERED: P-EPHED 60MG/TRIPROLIDI 2.5MG TABLET PO PRN (16:57)
[2022-02-25] MEDS ORDERED: LOPERAMIDE HCL 2 MG CAPSULE PO PRN (16:57)
[2022-02-25] MEDS ORDERED: MAG HYDROX/AL HYDROX/SIMETH 30 ML UNIT-DOSE CUP PO PRN (16:57)
[2022-02-25] MEDS ORDERED: hydrOXYzine PAMOATE 25 MG CAPSULE (FP) PO PRN (16:57)
[2022-02-25] MEDS: THIAMINE HCL 100 MG TABLET (FP) PO SCH (21:57)
[2022-02-25] MEDS: MELATONIN 5 MG TABLETS PO PRN (21:57)
[2022-02-26] MEDS ORDERED: methaDONE HCL 10 MG TABLET PO ONE (08:30)
[2022-02-26 09:47] LABS: PH,URINE 7.5 (5.0-8.0); URINE APPEARANCE CLEAR; URINE BILIRUBIN NEGATIVE (NEGATIVE); URINE COLOR YELLOW; URINE GLUCOSE (UA) NEGATIVE (NEGATIVE); URINE KETONE NEGATIVE (NEGATIVE); URINE LEUK ESTERASE NEGATIVE (NEGATIVE); URINE NITRITE NEGATIVE (NEGATIVE); URINE PROTEIN NEGATIVE (NEGATIVE); URINE UROBILINOGEN 0.2 mg/dL (0.2-1.0)
[2022-02-26] MEDS ORDERED: methaDONE HCL 40 MG DISPERSABLE TABLET ONE (09:59)
[2022-02-26] MEDS ORDERED: methaDONE HCL 10 MG TABLET ONE (09:59)
[2022-02-26] MEDS: amLODIPine BESYLATE 10 MG TABLET (FP) PO SCH (10:01)
[2022-02-26] MEDS: PRENATAL VITAMINS W/ FOLIC ACID TABLET (FP) PO SCH (10:01)
[2022-02-26] MEDS: CHLORTHALIDONE 25 MG TABLET PO SCH (10:34)
[2022-02-26 11:18] LABS: ALBUMIN 3.4 g/dl (3.4-5.0); CALCIUM 9.2 mg/dL (8.5-10.1)
[2022-02-26 11:19] LABS: BLOOD UREA NITROGEN 24.6 mg/dL (7-18)
[2022-02-26 11:22] LABS: CREATININE 1.8 mg/dL (0.55-1.3); PHOSPHOROUS 3.5 mg/dL (2.5-4.9)
[2022-02-26] MEDS: MAGNESIUM HYDROX 2400MG/30ML ORAL SUSPENSION 30 ML CUP PO PRN (16:33)
[2022-02-26] MEDS: THIAMINE HCL 100 MG TABLET (FP) PO SCH (21:43)
[2022-02-26] MEDS: PRAZOSIN HCL 1 MG CAPSULE PO SCH (21:43)
[2022-02-26] MEDS: MELATONIN 5 MG TABLETS PO PRN (21:44)
[2022-02-27] MEDS ORDERED: methaDONE HCL 10 MG TABLET PO SCH (06:00)
[2022-02-27] MEDS ORDERED: methaDONE HCL 40 MG DISPERSABLE TABLET ONE (06:06)
[2022-02-27] MEDS ORDERED: methaDONE HCL 10 MG TABLET ONE (06:06)
[2022-02-27] MEDS: MAGNESIUM HYDROX 2400MG/30ML ORAL SUSPENSION 30 ML CUP PO PRN (10:24)
[2022-02-27] MEDS: CHLORTHALIDONE 25 MG TABLET PO SCH (10:24)
[2022-02-27] MEDS: amLODIPine BESYLATE 10 MG TABLET (FP) PO SCH (10:24)
[2022-02-27] MEDS: PRENATAL VITAMINS W/ FOLIC ACID TABLET (FP) PO SCH (10:25)
[2022-02-27] MEDS: MELATONIN 5 MG TABLETS PO PRN (21:16)
[2022-02-27] MEDS: PRAZOSIN HCL 1 MG CAPSULE PO SCH (21:16)
[2022-02-27] MEDS: THIAMINE HCL 100 MG TABLET (FP) PO SCH (21:16)
[2022-02-28] MEDS ORDERED: methaDONE HCL 10 MG TABLET ONE (04:04)
[2022-02-28] MEDS ORDERED: methaDONE HCL 40 MG DISPERSABLE TABLET ONE (04:05)
[2022-02-28] MEDS: CHLORTHALIDONE 25 MG TABLET PO SCH (10:21)
[2022-02-28] MEDS: amLODIPine BESYLATE 10 MG TABLET (FP) PO SCH (10:22)
[2022-02-28] MEDS: PRENATAL VITAMINS W/ FOLIC ACID TABLET (FP) PO SCH (10:22)
[2022-02-28] MEDS: PRAZOSIN HCL 1 MG CAPSULE PO SCH (21:14)
[2022-02-28] MEDS: MELATONIN 5 MG TABLETS PO PRN (21:14)
[2022-02-28] MEDS: THIAMINE HCL 100 MG TABLET (FP) PO SCH (21:15)
[2022-03-01] MEDS ORDERED: methaDONE HCL 10 MG TABLET ONE (05:37)
[2022-03-01] MEDS ORDERED: methaDONE HCL 40 MG DISPERSABLE TABLET ONE (05:38)
[2022-03-01] MEDS: MAGNESIUM CITRATE 300 ML BOTTLE PO PRN (07:37)
[2022-03-01] MEDS: amLODIPine BESYLATE 10 MG TABLET (FP) PO SCH (10:16)
[2022-03-01] MEDS: CHLORTHALIDONE 25 MG TABLET PO SCH (10:16)
[2022-03-01] MEDS: PRENATAL VITAMINS W/ FOLIC ACID TABLET (FP) PO SCH (10:16)
[2022-03-01] MEDS: MINERAL OIL/PETROLAT/WATER TOPICAL CREAM 113 GM JAR TP SCH ×2 (14:12→22:16)
[2022-03-01] MEDS: THIAMINE HCL 100 MG TABLET (FP) PO SCH (21:13)
[2022-03-01] MEDS: MELATONIN 5 MG TABLETS PO PRN (21:13)
[2022-03-01] MEDS: PRAZOSIN HCL 1 MG CAPSULE PO SCH (21:14)
[2022-03-02] MEDS ORDERED: methaDONE HCL 10 MG TABLET ONE (07:07)
[2022-03-02] MEDS ORDERED: methaDONE HCL 40 MG DISPERSABLE TABLET ONE (07:07)
[2022-03-02] MEDS: PRENATAL VITAMINS W/ FOLIC ACID TABLET (FP) PO SCH (10:08)
[2022-03-02] MEDS: CHLORTHALIDONE 25 MG TABLET PO SCH (10:08)
[2022-03-02] MEDS: amLODIPine BESYLATE 10 MG TABLET (FP) PO SCH (10:08)
[2022-03-02] MEDS: MINERAL OIL/PETROLAT/WATER TOPICAL CREAM 113 GM JAR TP SCH ×2 (10:09→21:17)
[2022-03-02] MEDS: THIAMINE HCL 100 MG TABLET (FP) PO SCH (21:17)
[2022-03-02] MEDS: PRAZOSIN HCL 1 MG CAPSULE PO SCH (22:13)
[2022-03-03] MEDS ORDERED: methaDONE HCL 10 MG TABLET ONE (03:48)
[2022-03-03] MEDS ORDERED: methaDONE HCL 40 MG DISPERSABLE TABLET ONE (03:48)
[2022-03-03] MEDS: amLODIPine BESYLATE 10 MG TABLET (FP) PO SCH (09:56)
[2022-03-03] MEDS: PRENATAL VITAMINS W/ FOLIC ACID TABLET (FP) PO SCH (09:56)
[2022-03-03] MEDS: CHLORTHALIDONE 25 MG TABLET PO SCH (09:56)
[2022-03-03] MEDS: MINERAL OIL/PETROLAT/WATER TOPICAL CREAM 113 GM JAR TP SCH ×2 (09:58→21:22)
[2022-03-03] MEDS: FERROUS SO4 325 MG TABLET (FP) PO SCH ×2 (11:15→21:20)
[2022-03-03] MEDS: PRAZOSIN HCL 1 MG CAPSULE PO SCH (21:19)
[2022-03-03] MEDS: MELATONIN 5 MG TABLETS PO PRN (21:20)
[2022-03-03] MEDS: DOCUSATE SODIUM 100 MG CAPSULE (FP) PO SCH (21:20)
[2022-03-03] MEDS: THIAMINE HCL 100 MG TABLET (FP) PO SCH (21:20)
[2022-03-04] MEDS ORDERED: methaDONE HCL 10 MG TABLET ONE (04:01)
[2022-03-04] MEDS ORDERED: methaDONE HCL 40 MG DISPERSABLE TABLET ONE (04:01)
[2022-03-04] MEDS: FERROUS SO4 325 MG TABLET (FP) PO SCH ×2 (09:53→21:25)
[2022-03-04] MEDS: PRENATAL VITAMINS W/ FOLIC ACID TABLET (FP) PO SCH (09:53)
[2022-03-04] MEDS: MINERAL OIL/PETROLAT/WATER TOPICAL CREAM 113 GM JAR TP SCH ×2 (09:53→21:26)
[2022-03-04] MEDS: amLODIPine BESYLATE 10 MG TABLET (FP) PO SCH (09:53)
[2022-03-04] MEDS: CHLORTHALIDONE 25 MG TABLET PO SCH (09:53)
[2022-03-04 12:30] LABS: CALCIUM 9.5 mg/dL (8.5-10.1)
[2022-03-04 12:31] LABS: ALBUMIN 3.5 g/dl (3.4-5.0)
[2022-03-04 12:34] LABS: BLOOD UREA NITROGEN 29.1 mg/dL (7-18); PHOSPHOROUS 3.5 mg/dL (2.5-4.9)
[2022-03-04 12:36] LABS: CREATININE 1.9 mg/dL (0.55-1.3)
[2022-03-04] MEDS: DOCUSATE SODIUM 100 MG CAPSULE (FP) PO SCH (21:24)
[2022-03-04] MEDS: MELATONIN 5 MG TABLETS PO PRN (21:25)
[2022-03-04] MEDS: THIAMINE HCL 100 MG TABLET (FP) PO SCH (21:25)
[2022-03-04] MEDS: PRAZOSIN HCL 1 MG CAPSULE PO SCH (21:26)
[2022-03-05] MEDS ORDERED: methaDONE HCL 40 MG DISPERSABLE TABLET ONE (04:00)
[2022-03-05] MEDS ORDERED: methaDONE HCL 10 MG TABLET ONE (04:00)
[2022-03-05] MEDS: FERROUS SO4 325 MG TABLET (FP) PO SCH ×2 (10:18→21:12)
[2022-03-05] MEDS: amLODIPine BESYLATE 10 MG TABLET (FP) PO SCH (10:18)
[2022-03-05] MEDS: PRENATAL VITAMINS W/ FOLIC ACID TABLET (FP) PO SCH (10:18)
[2022-03-05] MEDS: CHLORTHALIDONE 25 MG TABLET PO SCH (10:19)
[2022-03-05] MEDS: MINERAL OIL/PETROLAT/WATER TOPICAL CREAM 113 GM JAR TP SCH ×2 (10:19→21:12)
[2022-03-05] MEDS: DOCUSATE SODIUM 100 MG CAPSULE (FP) PO SCH (21:11)
[2022-03-05] MEDS: MELATONIN 5 MG TABLETS PO PRN (21:12)
[2022-03-05] MEDS: PRAZOSIN HCL 1 MG CAPSULE PO SCH (21:12)
[2022-03-05] MEDS: THIAMINE HCL 100 MG TABLET (FP) PO SCH (21:12)
[2022-03-06] MEDS ORDERED: methaDONE HCL 40 MG DISPERSABLE TABLET ONE (06:16)
[2022-03-06] MEDS ORDERED: methaDONE HCL 10 MG TABLET ONE (06:16)
[2022-03-06] MEDS: CHLORTHALIDONE 25 MG TABLET PO SCH (10:15)
[2022-03-06] MEDS: MAGNESIUM CITRATE 300 ML BOTTLE PO PRN (10:15)
[2022-03-06] MEDS: FERROUS SO4 325 MG TABLET (FP) PO SCH ×2 (10:16→21:07)
[2022-03-06] MEDS: amLODIPine BESYLATE 10 MG TABLET (FP) PO SCH (10:16)
[2022-03-06] MEDS: PRENATAL VITAMINS W/ FOLIC ACID TABLET (FP) PO SCH (10:16)
[2022-03-06] MEDS: MINERAL OIL/PETROLAT/WATER TOPICAL CREAM 113 GM JAR TP SCH ×2 (10:17→21:07)
[2022-03-06] MEDS: PRAZOSIN HCL 1 MG CAPSULE PO SCH (21:07)
[2022-03-06] MEDS: DOCUSATE SODIUM 100 MG CAPSULE (FP) PO SCH (21:07)
[2022-03-06] MEDS: THIAMINE HCL 100 MG TABLET (FP) PO SCH (21:07)
[2022-03-06] MEDS: MELATONIN 5 MG TABLETS PO PRN (21:07)
[2022-03-07] MEDS ORDERED: methaDONE HCL 10 MG TABLET ONE (03:03)
[2022-03-07] MEDS ORDERED: methaDONE HCL 40 MG DISPERSABLE TABLET ONE (03:04)
[2022-03-07] MEDS: CHLORTHALIDONE 25 MG TABLET PO SCH (09:44)
[2022-03-07] MEDS: amLODIPine BESYLATE 10 MG TABLET (FP) PO SCH (09:44)
[2022-03-07] MEDS: PRENATAL VITAMINS W/ FOLIC ACID TABLET (FP) PO SCH (09:44)
[2022-03-07] MEDS: FERROUS SO4 325 MG TABLET (FP) PO SCH ×2 (09:44→21:18)
[2022-03-07] MEDS: MINERAL OIL/PETROLAT/WATER TOPICAL CREAM 113 GM JAR TP SCH ×2 (09:44→21:20)
[2022-03-07 13:22] LABS: ALBUMIN 3.8 g/dl (3.4-5.0); BLOOD UREA NITROGEN 34.2 mg/dL (7-18)
[2022-03-07 13:24] LABS: CALCIUM 9.5 mg/dL (8.5-10.1); PHOSPHOROUS 3.8 mg/dL (2.5-4.9)
[2022-03-07] MEDS: PRAZOSIN HCL 1 MG CAPSULE PO SCH (21:19)
[2022-03-07] MEDS: DOCUSATE SODIUM 100 MG CAPSULE (FP) PO SCH (21:20)
[2022-03-07] MEDS: THIAMINE HCL 100 MG TABLET (FP) PO SCH (21:20)
[2022-03-08] MEDS ORDERED: methaDONE HCL 10 MG TABLET ONE (04:14)
[2022-03-08] MEDS ORDERED: methaDONE HCL 40 MG DISPERSABLE TABLET ONE (04:14)
[2022-03-08] MEDS ORDERED: METOPROLOL TARTRATE 25 MG TABLET (FP) PO SCH (10:00)
[2022-03-08] MEDS: PRENATAL VITAMINS W/ FOLIC ACID TABLET (FP) PO SCH (10:07)
[2022-03-08] MEDS: cloNIDine HCL 0.1 MG TABLET PO SCH (10:07)
[2022-03-08] MEDS: FERROUS SO4 325 MG TABLET (FP) PO SCH ×2 (10:07→21:13)
[2022-03-08] MEDS: amLODIPine BESYLATE 10 MG TABLET (FP) PO SCH (10:08)
[2022-03-08] MEDS: MINERAL OIL/PETROLAT/WATER TOPICAL CREAM 113 GM JAR TP SCH ×2 (10:08→21:14)
[2022-03-08] MEDS: PRAZOSIN HCL 1 MG CAPSULE PO SCH (21:12)
[2022-03-08] MEDS: THIAMINE HCL 100 MG TABLET (FP) PO SCH (21:13)
[2022-03-08] MEDS: DOCUSATE SODIUM 100 MG CAPSULE (FP) PO SCH (21:13)
[2022-03-09] MEDS ORDERED: methaDONE HCL 10 MG TABLET ONE (02:47)
[2022-03-09] MEDS ORDERED: methaDONE HCL 40 MG DISPERSABLE TABLET ONE (02:48)
[2022-03-09] MEDS: cloNIDine HCL 0.1 MG TABLET PO SCH (10:12)
[2022-03-09] MEDS: amLODIPine BESYLATE 10 MG TABLET (FP) PO SCH (10:12)
[2022-03-09] MEDS: PRENATAL VITAMINS W/ FOLIC ACID TABLET (FP) PO SCH (10:12)
[2022-03-09] MEDS: FERROUS SO4 325 MG TABLET (FP) PO SCH ×2 (10:12→21:08)
[2022-03-09] MEDS: MINERAL OIL/PETROLAT/WATER TOPICAL CREAM 113 GM JAR TP SCH ×2 (10:13→21:09)
[2022-03-09] MEDS: PRAZOSIN HCL 1 MG CAPSULE PO SCH (21:08)
[2022-03-09] MEDS: DOCUSATE SODIUM 100 MG CAPSULE (FP) PO SCH (21:08)
[2022-03-09] MEDS: THIAMINE HCL 100 MG TABLET (FP) PO SCH (21:08)
[2022-03-09] MEDS: MELATONIN 5 MG TABLETS PO PRN (21:08)
[2022-03-10] MEDS ORDERED: methaDONE HCL 40 MG DISPERSABLE TABLET ONE (03:23)
[2022-03-10] MEDS ORDERED: methaDONE HCL 10 MG TABLET ONE (03:23)
[2022-03-10] MEDS: PRENATAL VITAMINS W/ FOLIC ACID TABLET (FP) PO SCH (10:11)
[2022-03-10] MEDS: amLODIPine BESYLATE 10 MG TABLET (FP) PO SCH (10:11)
[2022-03-10] MEDS: FERROUS SO4 325 MG TABLET (FP) PO SCH ×2 (10:11→21:22)
[2022-03-10] MEDS: cloNIDine HCL 0.1 MG TABLET PO SCH (10:11)
[2022-03-10] MEDS: MINERAL OIL/PETROLAT/WATER TOPICAL CREAM 113 GM JAR TP SCH ×2 (10:11→21:23)
[2022-03-10] MEDS: DOCUSATE SODIUM 100 MG CAPSULE (FP) PO SCH (21:21)
[2022-03-10] MEDS: MELATONIN 5 MG TABLETS PO PRN (21:21)
[2022-03-10] MEDS: THIAMINE HCL 100 MG TABLET (FP) PO SCH (21:21)
[2022-03-10] MEDS: PRAZOSIN HCL 1 MG CAPSULE PO SCH (21:22)
[2022-03-11] MEDS ORDERED: methaDONE HCL 40 MG DISPERSABLE TABLET ONE (03:20)
[2022-03-11] MEDS ORDERED: methaDONE HCL 10 MG TABLET ONE (03:20)
[2022-03-11 06:58] VITALS: TEMP 96.8
[2022-03-11] MEDS: PRENATAL VITAMINS W/ FOLIC ACID TABLET (FP) PO SCH (09:17)
[2022-03-11] MEDS: MINERAL OIL/PETROLAT/WATER TOPICAL CREAM 113 GM JAR TP SCH (09:17)
[2022-03-11] MEDS: amLODIPine BESYLATE 10 MG TABLET (FP) PO SCH (09:17)
[2022-03-11] MEDS: cloNIDine HCL 0.1 MG TABLET PO SCH (09:17)
[2022-03-11] MEDS: FERROUS SO4 325 MG TABLET (FP) PO SCH (09:17)
[2022-03-11 10:50] VITALS: BP 150/72; PULSE 71
== END 2022-03-11 10:19 | disposition home or self-care (01) | DRG 772 ==
LOC: YASAS 15:32 → Y3W 21:36
PROVIDERS: ADMIT Allergy & Immunology; ATTEND Psychiatry & Neurology Pain Medicine
PROC: HZ42ZZZ Group Counseling for Substance Abuse Treatment, Cognitive-Behavioral (ICD-10-PCS; principal; 2022-02-25)
DX: F10.20 Alcohol dependence, uncomplicated (principal); F11.20 Opioid dependence, uncomplicated; F16.20 Hallucinogen dependence, uncomplicated; F12.20 Cannabis dependence, uncomplicated; F17.210 Nicotine dependence, cigarettes, uncomplicated; D64.9 Anemia, unspecified; E11.22 Type 2 diabetes mellitus with diabetic chronic kidney disease; I12.9 Hypertensive chronic kidney disease with stage 1 through stage 4 chronic kidney disease, or unspecified chronic kidney disease; N18.9 Chronic kidney disease, unspecified; E78.5 Hyperlipidemia, unspecified; L85.3 Xerosis cutis; R76.11 Nonspecific reaction to tuberculin skin test without active tuberculosis; Z96.651 Presence of right artificial knee joint; E66.9 Obesity, unspecified; Z68.37 Body mass index [BMI] 37.0-37.9, adult; Z63.4 Disappearance and death of family member
CPT/HCPCS: 36415; 80069; 81003; 82962; C9803-CS; J0735; U0003; U0005

== ENCOUNTER 2022-05-03 10:35 | Inpatient (IN) | payer OTHER ==
[2022-05-03 11:29] VITALS: BMI 36.6
[2022-05-03] MEDS ORDERED: METHOCARBAMOL 500 MG TABLET PO PRN (12:01)
[2022-05-03] MEDS ORDERED: LOPERAMIDE HCL 2 MG CAPSULE PO PRN (12:01)
[2022-05-03] MEDS ORDERED: MAGNESIUM CITRATE 300 ML BOTTLE PO PRN (12:01)
[2022-05-03] MEDS ORDERED: BISMUTH SUBSALICYLATE 524 MG/30 ML PO PRN (12:01)
[2022-05-03] MEDS ORDERED: MAG HYDROX/AL HYDROX/SIMETH 30 ML UNIT-DOSE CUP PO PRN (12:01)
[2022-05-03] MEDS ORDERED: ONDANSETRON *ODT* 4 MG TABLET SL PRN (12:01)
[2022-05-03] MEDS ORDERED: BENZOCAINE/MENTHOL (CHLORASEPTIC ) LOZENGE MM PRN (12:01)
[2022-05-03] MEDS ORDERED: IBUPROFEN 400 MG TABLET (FP) PO PRN (12:01)
[2022-05-03] MEDS ORDERED: DICYCLOMINE HCL 10 MG CAPSULE PO PRN (12:01)
[2022-05-03] MEDS ORDERED: ACETAMINOPHEN 325 MG TABLET (FP) PO PRN ×2 (12:01)
[2022-05-03] MEDS ORDERED: IBUPROFEN 600 MG TABLET (FP) PO PRN (12:01)
[2022-05-03] MEDS: hydrOXYzine PAMOATE 25 MG CAPSULE (FP) PO SCH ×3 (13:49→22:20)
[2022-05-03] MEDS: ALBUTEROL SO4 HFA INHALER IH SCH ×3 (13:50→22:19)
[2022-05-03] MEDS: MELATONIN 5 MG TABLETS PO SCH (22:17)
[2022-05-03] MEDS: MAGNESIUM HYDROX 2400MG/30ML ORAL SUSPENSION 30 ML CUP PO PRN (22:19)
[2022-05-03] MEDS: THIAMINE HCL 100 MG TABLET (FP) PO SCH (22:20)
[2022-05-04] MEDS: ALBUTEROL SO4 HFA INHALER IH SCH ×6 (01:24→21:27)
[2022-05-04] MEDS: hydrOXYzine PAMOATE 25 MG CAPSULE (FP) PO SCH ×5 (05:39→22:17)
[2022-05-04 09:15] LABS: HEMATOCRIT 33.1 % (35.4-49); HEMOGLOBIN 10.9 GM/dL (11.7-16.9); MCH 22.3 pg (25.7-33.7); MCHC 32.8 g/dl (32.0-35.9); MEAN CELL VOLUME 67.8 fl (80-96); MEAN PLT VOLUME 6.9 fl (7.5-11.1); PLATELET COUNT 287 10^3/uL (134-434); RBC 4.89 M/mm3 (4.00-5.60); WHITE BLOOD COUNT 6.1 K/mm3 (4.0-10.0)
[2022-05-04 09:30] LABS: BLOOD UREA NITROGEN 30.2 mg/dL (7-18)
[2022-05-04 09:32] LABS: CREATININE 1.8 mg/dL (0.55-1.3)
[2022-05-04 09:34] LABS: BILIRUBIN,TOTAL 0.5 mg/dL (0.2-1)
[2022-05-04] MEDS ORDERED: methaDONE HCL 10 MG TABLET PO ONE (09:51)
[2022-05-04] MEDS ORDERED: LOSARTAN POTASSIUM 50 MG TABLET PO SCH (10:00)
[2022-05-04] MEDS ORDERED: methaDONE HCL 10 MG TABLET ONE (10:56)
[2022-05-04] MEDS ORDERED: methaDONE HCL 40 MG DISPERSABLE TABLET ONE (10:56)
[2022-05-04] MEDS: amLODIPine BESYLATE 10 MG TABLET (FP) PO SCH (11:08)
[2022-05-04] MEDS: PRENATAL VITAMINS W/ FOLIC ACID TABLET (FP) PO SCH (11:08)
[2022-05-04] MEDS: LOSARTAN POTASSIUM 25 MG TABLET PO SCH (12:34)
[2022-05-04] MEDS: CHLORTHALIDONE 25 MG TABLET PO SCH (12:34)
[2022-05-04] MEDS: FERROUS GLUCONATE 324 MG TAB (FP) PO SCH (18:18)
[2022-05-04] MEDS: MAGNESIUM HYDROX 2400MG/30ML ORAL SUSPENSION 30 ML CUP PO PRN (18:50)
[2022-05-04] MEDS ORDERED: PRAZOSIN HCL 1 MG CAPSULE PO SCH (22:00)
[2022-05-04] MEDS: MELATONIN 5 MG TABLETS PO SCH (22:17)
[2022-05-04] MEDS: THIAMINE HCL 100 MG TABLET (FP) PO SCH (22:17)
[2022-05-05] MEDS: ALBUTEROL SO4 HFA INHALER IH SCH ×3 (05:29→12:46)
[2022-05-05] MEDS: hydrOXYzine PAMOATE 25 MG CAPSULE (FP) PO SCH ×2 (05:29→10:12)
[2022-05-05 09:52] LABS: BLOOD UREA NITROGEN 23.5 mg/dL (7-18)
[2022-05-05 09:56] LABS: CREATININE 1.7 mg/dL (0.55-1.3)
[2022-05-05] MEDS: CHLORTHALIDONE 25 MG TABLET PO SCH (10:11)
[2022-05-05] MEDS: PRENATAL VITAMINS W/ FOLIC ACID TABLET (FP) PO SCH (10:11)
[2022-05-05] MEDS: amLODIPine BESYLATE 10 MG TABLET (FP) PO SCH (10:11)
[2022-05-05] MEDS: LOSARTAN POTASSIUM 25 MG TABLET PO SCH (10:12)
[2022-05-05] MEDS: FERROUS GLUCONATE 324 MG TAB (FP) PO SCH (11:14)
[2022-05-05 13:06] VITALS: BP 141/65; PULSE 74; RESP 19; TEMP 96.9
== END 2022-05-05 13:15 | disposition other institution (70) | DRG 773 ==
LOC: YASAS 10:35 → Y6N 12:24
PROVIDERS: ADMIT Allergy & Immunology; ATTEND Surgery
PROC: HZ2ZZZZ Detoxification Services for Substance Abuse Treatment (ICD-10-PCS; principal; 2022-05-03)
DX: F10.230 Alcohol dependence with withdrawal, uncomplicated (principal); F11.20 Opioid dependence, uncomplicated; F12.20 Cannabis dependence, uncomplicated; F43.10 Post-traumatic stress disorder, unspecified; E11.22 Type 2 diabetes mellitus with diabetic chronic kidney disease; I12.9 Hypertensive chronic kidney disease with stage 1 through stage 4 chronic kidney disease, or unspecified chronic kidney disease; N18.30 Chronic kidney disease, stage 3 unspecified; Z87.891 Personal history of nicotine dependence; J45.20 Mild intermittent asthma, uncomplicated; I25.2 Old myocardial infarction; D50.9 Iron deficiency anemia, unspecified; E66.01 Morbid (severe) obesity due to excess calories; Z68.36 Body mass index [BMI] 36.0-36.9, adult; Z91.013 Allergy to seafood; Z88.8 Allergy status to other drugs, medicaments and biological substances; Z86.11 Personal history of tuberculosis; Z96.651 Presence of right artificial knee joint; Z63.4 Disappearance and death of family member; Z56.0 Unemployment, unspecified; Z59.00 Homelessness unspecified
CPT/HCPCS: 36415; 80053; 82565; 82962; 84520; 85027; 86780; C9803-CS; U0003; U0005

== ENCOUNTER 2022-05-05 13:35 | Inpatient (IN) | payer OTHER ==
[2022-05-05] MEDS ORDERED: guaiFENesin 200 MG/10 ML 10 ML UNIT-DOSE CUPS PO PRN (15:06)
[2022-05-05] MEDS ORDERED: P-EPHED 60MG/TRIPROLIDI 2.5MG TABLET PO PRN (15:06)
[2022-05-05] MEDS ORDERED: BENZOCAINE/MENTHOL (CHLORASEPTIC ) LOZENGE MM PRN (15:06)
[2022-05-05] MEDS ORDERED: IBUPROFEN 400 MG TABLET (FP) PO PRN (15:06)
[2022-05-05] MEDS ORDERED: MAG HYDROX/AL HYDROX/SIMETH 30 ML UNIT-DOSE CUP PO PRN (15:06)
[2022-05-05] MEDS ORDERED: LOPERAMIDE HCL 2 MG CAPSULE PO PRN (15:06)
[2022-05-05] MEDS ORDERED: MAGNESIUM CITRATE 300 ML BOTTLE PO PRN (15:06)
[2022-05-05] MEDS ORDERED: ACETAMINOPHEN 325 MG TABLET (FP) PO PRN (15:06)
[2022-05-05] MEDS ORDERED: NICOTINE 10 MG CARTRIDGE (INHALER) IH PRN (15:06)
[2022-05-05] MEDS ORDERED: MAGNESIUM HYDROX 2400MG/30ML ORAL SUSPENSION 30 ML CUP PO PRN (15:06)
[2022-05-05] MEDS ORDERED: ALBUTEROL SO4 HFA INHALER IH PRN (15:24)
[2022-05-05] MEDS ORDERED: methaDONE HCL 10 MG TABLET PO ONE (15:30)
[2022-05-05] MEDS ORDERED: methaDONE HCL 10 MG TABLET ONE (15:52)
[2022-05-05] MEDS ORDERED: methaDONE HCL 40 MG DISPERSABLE TABLET ONE (15:53)
[2022-05-05] MEDS: THIAMINE HCL 100 MG TABLET (FP) PO SCH (21:21)
[2022-05-05] MEDS: MELATONIN 5 MG TABLETS PO SCH (21:21)
[2022-05-05] MEDS: PRAZOSIN HCL 1 MG CAPSULE PO SCH (21:21)
[2022-05-06] MEDS ORDERED: methaDONE HCL 40 MG DISPERSABLE TABLET PO SCH (06:00)
[2022-05-06] MEDS ORDERED: methaDONE HCL 10 MG TABLET ONE (07:05)
[2022-05-06] MEDS ORDERED: methaDONE HCL 40 MG DISPERSABLE TABLET ONE (07:06)
[2022-05-06] MEDS: FERROUS SO4 325 MG TABLET (FP) PO SCH (09:56)
[2022-05-06] MEDS: NICOTINE 7 MG/24 HOURS TOPICAL PATCH TD SCH (09:56)
[2022-05-06] MEDS: PRENATAL VITAMINS W/ FOLIC ACID TABLET (FP) PO SCH (09:56)
[2022-05-06] MEDS: LOSARTAN POTASSIUM 25 MG TABLET PO SCH (09:57)
[2022-05-06] MEDS: amLODIPine BESYLATE 10 MG TABLET (FP) PO SCH (11:17)
[2022-05-06] MEDS: CHLORTHALIDONE 25 MG TABLET PO SCH (11:18)
[2022-05-06 18:40] LABS: HIV INTERPRETATION NEGATIVE (NEGATIVE)
[2022-05-06] MEDS: MELATONIN 5 MG TABLETS PO SCH (21:20)
[2022-05-06] MEDS: PRAZOSIN HCL 1 MG CAPSULE PO SCH (21:20)
[2022-05-06] MEDS: THIAMINE HCL 100 MG TABLET (FP) PO SCH (21:21)
[2022-05-06] MEDS: hydrOXYzine PAMOATE 25 MG CAPSULE (FP) PO PRN (21:21)
[2022-05-07] MEDS: PRENATAL VITAMINS W/ FOLIC ACID TABLET (FP) PO SCH (09:50)
[2022-05-07] MEDS: NICOTINE 7 MG/24 HOURS TOPICAL PATCH TD SCH (09:50)
[2022-05-07] MEDS: FERROUS SO4 325 MG TABLET (FP) PO SCH (09:51)
[2022-05-07] MEDS: LOSARTAN POTASSIUM 25 MG TABLET PO SCH (09:51)
[2022-05-07] MEDS: amLODIPine BESYLATE 10 MG TABLET (FP) PO SCH (11:16)
[2022-05-07] MEDS: CHLORTHALIDONE 25 MG TABLET PO SCH (11:16)
[2022-05-07] MEDS: MELATONIN 5 MG TABLETS PO SCH (21:09)
[2022-05-07] MEDS: PRAZOSIN HCL 1 MG CAPSULE PO SCH (21:10)
[2022-05-07] MEDS: THIAMINE HCL 100 MG TABLET (FP) PO SCH (21:10)
[2022-05-07] MEDS: hydrOXYzine PAMOATE 25 MG CAPSULE (FP) PO PRN (21:11)
[2022-05-08] MEDS: PRENATAL VITAMINS W/ FOLIC ACID TABLET (FP) PO SCH (10:07)
[2022-05-08] MEDS: CHLORTHALIDONE 25 MG TABLET PO SCH (10:08)
[2022-05-08] MEDS: FERROUS SO4 325 MG TABLET (FP) PO SCH (10:08)
[2022-05-08] MEDS: amLODIPine BESYLATE 10 MG TABLET (FP) PO SCH (10:08)
[2022-05-08] MEDS: NICOTINE 7 MG/24 HOURS TOPICAL PATCH TD SCH (10:09)
[2022-05-08] MEDS: LOSARTAN POTASSIUM 25 MG TABLET PO SCH (10:10)
[2022-05-08] MEDS ORDERED: DOCUSATE SODIUM 100 MG CAPSULE (FP) PO ONE (10:14)
[2022-05-08] MEDS: DOCUSATE SODIUM 100 MG CAPSULE (FP) PO SCH ×2 (16:22→21:08)
[2022-05-08] MEDS: PRAZOSIN HCL 1 MG CAPSULE PO SCH (21:08)
[2022-05-08] MEDS: MELATONIN 5 MG TABLETS PO SCH (21:08)
[2022-05-08] MEDS: THIAMINE HCL 100 MG TABLET (FP) PO SCH (21:08)
[2022-05-08] MEDS: hydrOXYzine PAMOATE 25 MG CAPSULE (FP) PO PRN (21:09)
[2022-05-09] MEDS: DOCUSATE SODIUM 100 MG CAPSULE (FP) PO SCH ×3 (06:18→21:01)
[2022-05-09] MEDS: amLODIPine BESYLATE 10 MG TABLET (FP) PO SCH (09:41)
[2022-05-09] MEDS: PRENATAL VITAMINS W/ FOLIC ACID TABLET (FP) PO SCH (09:41)
[2022-05-09] MEDS: FERROUS SO4 325 MG TABLET (FP) PO SCH (09:42)
[2022-05-09] MEDS: LOSARTAN POTASSIUM 25 MG TABLET PO SCH (09:42)
[2022-05-09] MEDS: CHLORTHALIDONE 25 MG TABLET PO SCH (09:42)
[2022-05-09] MEDS: NICOTINE 7 MG/24 HOURS TOPICAL PATCH TD SCH (09:42)
[2022-05-09] MEDS: MELATONIN 5 MG TABLETS PO SCH (21:01)
[2022-05-09] MEDS: THIAMINE HCL 100 MG TABLET (FP) PO SCH (21:01)
[2022-05-09] MEDS: PRAZOSIN HCL 1 MG CAPSULE PO SCH (21:01)
[2022-05-10] MEDS: DOCUSATE SODIUM 100 MG CAPSULE (FP) PO SCH ×3 (06:22→21:16)
[2022-05-10] MEDS: PRENATAL VITAMINS W/ FOLIC ACID TABLET (FP) PO SCH (10:25)
[2022-05-10] MEDS: amLODIPine BESYLATE 10 MG TABLET (FP) PO SCH (10:26)
[2022-05-10] MEDS: FERROUS SO4 325 MG TABLET (FP) PO SCH (10:26)
[2022-05-10] MEDS: CHLORTHALIDONE 25 MG TABLET PO SCH (10:26)
[2022-05-10] MEDS: LOSARTAN POTASSIUM 25 MG TABLET PO SCH (10:27)
[2022-05-10] MEDS: NICOTINE 7 MG/24 HOURS TOPICAL PATCH TD SCH (10:27)
[2022-05-10] MEDS: PSYLLIUM 5.85 GM PACKET PO SCH (15:49)
[2022-05-10] MEDS: MELATONIN 5 MG TABLETS PO SCH (21:17)
[2022-05-10] MEDS: PRAZOSIN HCL 1 MG CAPSULE PO SCH (21:17)
[2022-05-10] MEDS: THIAMINE HCL 100 MG TABLET (FP) PO SCH (21:17)
[2022-05-11] MEDS: DOCUSATE SODIUM 100 MG CAPSULE (FP) PO SCH ×3 (06:50→21:15)
[2022-05-11] MEDS: FERROUS SO4 325 MG TABLET (FP) PO SCH (10:25)
[2022-05-11] MEDS: PRENATAL VITAMINS W/ FOLIC ACID TABLET (FP) PO SCH (10:25)
[2022-05-11] MEDS: amLODIPine BESYLATE 10 MG TABLET (FP) PO SCH (10:25)
[2022-05-11] MEDS: LOSARTAN POTASSIUM 25 MG TABLET PO SCH (10:26)
[2022-05-11] MEDS: CHLORTHALIDONE 25 MG TABLET PO SCH (10:26)
[2022-05-11] MEDS: PSYLLIUM 5.85 GM PACKET PO SCH (10:27)
[2022-05-11] MEDS ORDERED: COLLOIDAL OATMEAL 1 BAR EACH TP PRN (11:51)
[2022-05-11] MEDS: THIAMINE HCL 100 MG TABLET (FP) PO SCH (21:15)
[2022-05-11] MEDS: PRAZOSIN HCL 1 MG CAPSULE PO SCH (21:15)
[2022-05-11] MEDS: MELATONIN 5 MG TABLETS PO SCH (21:15)
[2022-05-12] MEDS: DOCUSATE SODIUM 100 MG CAPSULE (FP) PO SCH ×3 (07:27→21:19)
[2022-05-12] MEDS: LOSARTAN POTASSIUM 25 MG TABLET PO SCH (09:55)
[2022-05-12] MEDS: amLODIPine BESYLATE 10 MG TABLET (FP) PO SCH (09:55)
[2022-05-12] MEDS: FERROUS SO4 325 MG TABLET (FP) PO SCH (09:55)
[2022-05-12] MEDS: CHLORTHALIDONE 25 MG TABLET PO SCH (09:55)
[2022-05-12] MEDS: PSYLLIUM 5.85 GM PACKET PO SCH (09:56)
[2022-05-12] MEDS: PRENATAL VITAMINS W/ FOLIC ACID TABLET (FP) PO SCH (09:56)
[2022-05-12] MEDS: HYDROCORTISONE 1% TOPICAL OINT 30 GM TUBE TP PRN ×2 (09:59→21:22)
[2022-05-12] MEDS: MELATONIN 5 MG TABLETS PO SCH (21:20)
[2022-05-12] MEDS: PRAZOSIN HCL 1 MG CAPSULE PO SCH (21:20)
[2022-05-12] MEDS: THIAMINE HCL 100 MG TABLET (FP) PO SCH (21:20)
[2022-05-13] MEDS: DOCUSATE SODIUM 100 MG CAPSULE (FP) PO SCH ×3 (07:49→21:08)
[2022-05-13] MEDS: PRENATAL VITAMINS W/ FOLIC ACID TABLET (FP) PO SCH (09:50)
[2022-05-13] MEDS: CHLORTHALIDONE 25 MG TABLET PO SCH (09:50)
[2022-05-13] MEDS: FERROUS SO4 325 MG TABLET (FP) PO SCH (09:50)
[2022-05-13] MEDS: amLODIPine BESYLATE 10 MG TABLET (FP) PO SCH (09:51)
[2022-05-13] MEDS: LOSARTAN POTASSIUM 25 MG TABLET PO SCH (09:51)
[2022-05-13] MEDS: HYDROCORTISONE 1% TOPICAL OINT 30 GM TUBE TP PRN (09:51)
[2022-05-13] MEDS: PSYLLIUM 5.85 GM PACKET PO SCH (10:53)
[2022-05-13] MEDS: PRAZOSIN HCL 1 MG CAPSULE PO SCH (21:08)
[2022-05-13] MEDS: MELATONIN 5 MG TABLETS PO SCH (21:08)
[2022-05-13] MEDS: THIAMINE HCL 100 MG TABLET (FP) PO SCH (21:09)
[2022-05-14] MEDS: DOCUSATE SODIUM 100 MG CAPSULE (FP) PO SCH ×3 (06:21→21:23)
[2022-05-14] MEDS: PRENATAL VITAMINS W/ FOLIC ACID TABLET (FP) PO SCH (09:33)
[2022-05-14] MEDS: CHLORTHALIDONE 25 MG TABLET PO SCH (09:34)
[2022-05-14] MEDS: FERROUS SO4 325 MG TABLET (FP) PO SCH (09:34)
[2022-05-14] MEDS: amLODIPine BESYLATE 10 MG TABLET (FP) PO SCH (09:34)
[2022-05-14] MEDS: LOSARTAN POTASSIUM 25 MG TABLET PO SCH (09:34)
[2022-05-14] MEDS: PSYLLIUM 5.85 GM PACKET PO SCH (09:35)
[2022-05-14] MEDS: HYDROCORTISONE 1% TOPICAL OINT 30 GM TUBE TP PRN (09:35)
[2022-05-14] MEDS: THIAMINE HCL 100 MG TABLET (FP) PO SCH (21:22)
[2022-05-14] MEDS: PRAZOSIN HCL 1 MG CAPSULE PO SCH (21:23)
[2022-05-14] MEDS: MELATONIN 5 MG TABLETS PO SCH (21:42)
[2022-05-15] MEDS: DOCUSATE SODIUM 100 MG CAPSULE (FP) PO SCH ×3 (06:15→21:22)
[2022-05-15] MEDS: CHLORTHALIDONE 25 MG TABLET PO SCH (09:50)
[2022-05-15] MEDS: amLODIPine BESYLATE 10 MG TABLET (FP) PO SCH (09:50)
[2022-05-15] MEDS: LOSARTAN POTASSIUM 25 MG TABLET PO SCH (09:50)
[2022-05-15] MEDS: PRENATAL VITAMINS W/ FOLIC ACID TABLET (FP) PO SCH (09:50)
[2022-05-15] MEDS: FERROUS SO4 325 MG TABLET (FP) PO SCH (09:51)
[2022-05-15] MEDS: PSYLLIUM 5.85 GM PACKET PO SCH (09:51)
[2022-05-15] MEDS: HYDROCORTISONE 1% TOPICAL OINT 30 GM TUBE TP PRN (09:53)
[2022-05-15] MEDS: METHYL SALICYLATE/MENTHOL OINT 30 GM TUBE TP SCH ×2 (14:11→21:28)
[2022-05-15] MEDS: PRAZOSIN HCL 1 MG CAPSULE PO SCH (21:21)
[2022-05-15] MEDS: THIAMINE HCL 100 MG TABLET (FP) PO SCH (21:22)
[2022-05-15] MEDS: hydrOXYzine PAMOATE 25 MG CAPSULE (FP) PO PRN (21:22)
[2022-05-15] MEDS: MELATONIN 5 MG TABLETS PO SCH (21:22)
[2022-05-16] MEDS: DOCUSATE SODIUM 100 MG CAPSULE (FP) PO SCH ×3 (07:49→21:20)
[2022-05-16] MEDS: METHYL SALICYLATE/MENTHOL OINT 30 GM TUBE TP SCH ×2 (10:00→23:30)
[2022-05-16] MEDS: PRENATAL VITAMINS W/ FOLIC ACID TABLET (FP) PO SCH (10:01)
[2022-05-16] MEDS: FERROUS SO4 325 MG TABLET (FP) PO SCH (10:01)
[2022-05-16] MEDS: PSYLLIUM 5.85 GM PACKET PO SCH (10:01)
[2022-05-16] MEDS: amLODIPine BESYLATE 10 MG TABLET (FP) PO SCH (12:35)
[2022-05-16] MEDS: LOSARTAN POTASSIUM 25 MG TABLET PO SCH (12:35)
[2022-05-16] MEDS: CHLORTHALIDONE 25 MG TABLET PO SCH (12:35)
[2022-05-16] MEDS: THIAMINE HCL 100 MG TABLET (FP) PO SCH (21:15)
[2022-05-16] MEDS: PRAZOSIN HCL 1 MG CAPSULE PO SCH (21:17)
[2022-05-16] MEDS: MELATONIN 5 MG TABLETS PO SCH (21:20)
[2022-05-17] MEDS: DOCUSATE SODIUM 100 MG CAPSULE (FP) PO SCH ×3 (07:40→21:20)
[2022-05-17] MEDS: amLODIPine BESYLATE 10 MG TABLET (FP) PO SCH (10:05)
[2022-05-17] MEDS: PRENATAL VITAMINS W/ FOLIC ACID TABLET (FP) PO SCH (10:05)
[2022-05-17] MEDS: CHLORTHALIDONE 25 MG TABLET PO SCH (10:06)
[2022-05-17] MEDS: LOSARTAN POTASSIUM 25 MG TABLET PO SCH (10:06)
[2022-05-17] MEDS: FERROUS SO4 325 MG TABLET (FP) PO SCH (10:06)
[2022-05-17] MEDS: PSYLLIUM 5.85 GM PACKET PO SCH (10:07)
[2022-05-17] MEDS: METHYL SALICYLATE/MENTHOL OINT 30 GM TUBE TP SCH ×2 (10:07→21:22)
[2022-05-17] MEDS: THIAMINE HCL 100 MG TABLET (FP) PO SCH (21:20)
[2022-05-17] MEDS: MELATONIN 5 MG TABLETS PO SCH (21:22)
[2022-05-17] MEDS: PRAZOSIN HCL 1 MG CAPSULE PO SCH (21:23)
[2022-05-18] MEDS: DOCUSATE SODIUM 100 MG CAPSULE (FP) PO SCH ×3 (06:54→21:12)
[2022-05-18] MEDS: FERROUS SO4 325 MG TABLET (FP) PO SCH (09:58)
[2022-05-18] MEDS: PRENATAL VITAMINS W/ FOLIC ACID TABLET (FP) PO SCH (09:58)
[2022-05-18] MEDS: LOSARTAN POTASSIUM 25 MG TABLET PO SCH (09:59)
[2022-05-18] MEDS: CHLORTHALIDONE 25 MG TABLET PO SCH (09:59)
[2022-05-18] MEDS: amLODIPine BESYLATE 10 MG TABLET (FP) PO SCH (09:59)
[2022-05-18] MEDS: METHYL SALICYLATE/MENTHOL OINT 30 GM TUBE TP SCH ×2 (09:59→21:13)
[2022-05-18] MEDS: PSYLLIUM 5.85 GM PACKET PO SCH (10:00)
[2022-05-18] MEDS: THIAMINE HCL 100 MG TABLET (FP) PO SCH (21:12)
[2022-05-18] MEDS: MELATONIN 5 MG TABLETS PO SCH (21:12)
[2022-05-18] MEDS: PRAZOSIN HCL 1 MG CAPSULE PO SCH (21:13)
[2022-05-19] MEDS: DOCUSATE SODIUM 100 MG CAPSULE (FP) PO SCH ×3 (07:47→21:21)
[2022-05-19] MEDS: amLODIPine BESYLATE 10 MG TABLET (FP) PO SCH (10:06)
[2022-05-19] MEDS: FERROUS SO4 325 MG TABLET (FP) PO SCH (10:06)
[2022-05-19] MEDS: LOSARTAN POTASSIUM 25 MG TABLET PO SCH (10:06)
[2022-05-19] MEDS: PRENATAL VITAMINS W/ FOLIC ACID TABLET (FP) PO SCH (10:06)
[2022-05-19] MEDS: PSYLLIUM 5.85 GM PACKET PO SCH (10:06)
[2022-05-19] MEDS: CHLORTHALIDONE 25 MG TABLET PO SCH (10:07)
[2022-05-19] MEDS: METHYL SALICYLATE/MENTHOL OINT 30 GM TUBE TP SCH ×2 (10:07→22:11)
[2022-05-19] MEDS: HYDROCORTISONE 1% TOPICAL OINT 30 GM TUBE TP PRN (10:09)
[2022-05-19] MEDS ORDERED: PHENYLEPHRINE HCL/COCOA BUTTER SUPPOSITORY RC PRN (12:16)
[2022-05-19] MEDS: PRAZOSIN HCL 1 MG CAPSULE PO SCH (21:20)
[2022-05-19] MEDS: MELATONIN 5 MG TABLETS PO SCH (21:20)
[2022-05-19] MEDS: THIAMINE HCL 100 MG TABLET (FP) PO SCH (21:21)
[2022-05-20] MEDS: DOCUSATE SODIUM 100 MG CAPSULE (FP) PO SCH ×3 (06:26→21:20)
[2022-05-20] MEDS: amLODIPine BESYLATE 10 MG TABLET (FP) PO SCH (10:11)
[2022-05-20] MEDS: PRENATAL VITAMINS W/ FOLIC ACID TABLET (FP) PO SCH (10:11)
[2022-05-20] MEDS: FERROUS SO4 325 MG TABLET (FP) PO SCH (10:11)
[2022-05-20] MEDS: LOSARTAN POTASSIUM 25 MG TABLET PO SCH (10:12)
[2022-05-20] MEDS: CHLORTHALIDONE 25 MG TABLET PO SCH (10:12)
[2022-05-20] MEDS: METHYL SALICYLATE/MENTHOL OINT 30 GM TUBE TP SCH ×2 (10:12→21:27)
[2022-05-20] MEDS: PSYLLIUM 5.85 GM PACKET PO SCH (10:13)
[2022-05-20] MEDS: HYDROCORTISONE 1% TOPICAL OINT 30 GM TUBE TP PRN (10:14)
[2022-05-20] MEDS: MELATONIN 5 MG TABLETS PO SCH (21:20)
[2022-05-20] MEDS: THIAMINE HCL 100 MG TABLET (FP) PO SCH (21:20)
[2022-05-20] MEDS: PRAZOSIN HCL 1 MG CAPSULE PO SCH (21:20)
[2022-05-21] MEDS: DOCUSATE SODIUM 100 MG CAPSULE (FP) PO SCH ×3 (07:36→21:18)
[2022-05-21] MEDS: PSYLLIUM 5.85 GM PACKET PO SCH (09:51)
[2022-05-21] MEDS: FERROUS SO4 325 MG TABLET (FP) PO SCH (09:51)
[2022-05-21] MEDS: amLODIPine BESYLATE 10 MG TABLET (FP) PO SCH (09:51)
[2022-05-21] MEDS: LOSARTAN POTASSIUM 25 MG TABLET PO SCH (09:51)
[2022-05-21] MEDS: METHYL SALICYLATE/MENTHOL OINT 30 GM TUBE TP SCH ×2 (09:51→21:18)
[2022-05-21] MEDS: PRENATAL VITAMINS W/ FOLIC ACID TABLET (FP) PO SCH (09:51)
[2022-05-21] MEDS: CHLORTHALIDONE 25 MG TABLET PO SCH (09:51)
[2022-05-21] MEDS: HYDROCORTISONE 1% TOPICAL OINT 30 GM TUBE TP PRN (09:53)
[2022-05-21] MEDS: MELATONIN 5 MG TABLETS PO SCH (21:18)
[2022-05-21] MEDS: THIAMINE HCL 100 MG TABLET (FP) PO SCH (21:18)
[2022-05-21] MEDS: PRAZOSIN HCL 1 MG CAPSULE PO SCH (21:19)
[2022-05-22] MEDS: DOCUSATE SODIUM 100 MG CAPSULE (FP) PO SCH ×3 (06:35→21:17)
[2022-05-22] MEDS: PSYLLIUM 5.85 GM PACKET PO SCH (10:05)
[2022-05-22] MEDS: PRENATAL VITAMINS W/ FOLIC ACID TABLET (FP) PO SCH (10:05)
[2022-05-22] MEDS: METHYL SALICYLATE/MENTHOL OINT 30 GM TUBE TP SCH ×2 (10:05→21:17)
[2022-05-22] MEDS: CHLORTHALIDONE 25 MG TABLET PO SCH (10:05)
[2022-05-22] MEDS: amLODIPine BESYLATE 10 MG TABLET (FP) PO SCH (10:06)
[2022-05-22] MEDS: FERROUS SO4 325 MG TABLET (FP) PO SCH (10:06)
[2022-05-22] MEDS: LOSARTAN POTASSIUM 25 MG TABLET PO SCH (10:07)
[2022-05-22] MEDS: HYDROCORTISONE 1% TOPICAL OINT 30 GM TUBE TP PRN (10:08)
[2022-05-22] MEDS: MELATONIN 5 MG TABLETS PO SCH (21:17)
[2022-05-22] MEDS: THIAMINE HCL 100 MG TABLET (FP) PO SCH (21:17)
[2022-05-22] MEDS: PRAZOSIN HCL 1 MG CAPSULE PO SCH (21:18)
[2022-05-23] MEDS: DOCUSATE SODIUM 100 MG CAPSULE (FP) PO SCH (06:04)
[2022-05-23 09:30] VITALS: BP 131/63; PULSE 74; RESP 16
[2022-05-23 10:18] VITALS: TEMP 96.1
== END 2022-05-23 09:17 | disposition home or self-care (01) | DRG 772 ==
LOC: YASAS 13:35 → Y5N 13:37
PROVIDERS: ADMIT Allergy & Immunology; ATTEND Psychiatry & Neurology Pain Medicine
PROC: HZ42ZZZ Group Counseling for Substance Abuse Treatment, Cognitive-Behavioral (ICD-10-PCS; principal; 2022-05-05)
DX: F10.20 Alcohol dependence, uncomplicated (principal); F11.20 Opioid dependence, uncomplicated; F12.20 Cannabis dependence, uncomplicated; F17.210 Nicotine dependence, cigarettes, uncomplicated; E11.22 Type 2 diabetes mellitus with diabetic chronic kidney disease; I12.9 Hypertensive chronic kidney disease with stage 1 through stage 4 chronic kidney disease, or unspecified chronic kidney disease; N18.30 Chronic kidney disease, stage 3 unspecified; K59.03 Drug induced constipation; E66.9 Obesity, unspecified; Z68.37 Body mass index [BMI] 37.0-37.9, adult
CPT/HCPCS: 36415; 82962; 87389

== ENCOUNTER 2024-02-09 15:24 | Inpatient (IN) | payer OTHER ==
[2024-02-09 17:24] VITALS: BMI 37.3
[2024-02-09] MEDS ORDERED: ALBUTEROL SO4 HFA INHALER IH PRN (18:02)
[2024-02-09] MEDS ORDERED: BENZONATATE 200 MG CAPSULE PO PRN (18:12)
[2024-02-09] MEDS ORDERED: BENZOCAINE/MENTHOL (CHLORASEPTIC ) LOZENGE MM PRN (18:12)
[2024-02-09] MEDS ORDERED: DICYCLOMINE HCL 10 MG CAPSULE PO PRN (18:12)
[2024-02-09] MEDS ORDERED: BISMUTH SUBSALICYLATE 524 MG/30 ML PO PRN (18:12)
[2024-02-09] MEDS ORDERED: guaiFENesin 600 MG TABLET.ER (FP) PO PRN (18:12)
[2024-02-09] MEDS ORDERED: P-EPHED 60MG/TRIPROLIDI 2.5MG TABLET PO PRN (18:12)
[2024-02-09] MEDS ORDERED: ACETAMINOPHEN 325 MG TABLET (FP) PO PRN (18:12)
[2024-02-09] MEDS ORDERED: ONDANSETRON *ODT* 4 MG TABLET SL PRN (18:12)
[2024-02-09] MEDS ORDERED: LOPERAMIDE HCL 2 MG CAPSULE PO PRN (18:12)
[2024-02-09] MEDS ORDERED: METOPROLOL TARTRATE 25 MG TABLET (FP) ONE (18:30)
[2024-02-09] MEDS: METOPROLOL TARTRATE 25 MG TABLET (FP) PO ONE (18:58)
[2024-02-09] MEDS: FERROUS SO4 325 MG TABLET (FP) PO SCH (18:59)
[2024-02-09] MEDS: ASPIRIN COATED 81 MG TABLET.EC PO SCH (21:20)
[2024-02-09] MEDS: METHOCARBAMOL 500 MG TABLET PO PRN (21:21)
[2024-02-09] MEDS: MELATONIN 5 MG TABLETS PO SCH (21:21)
[2024-02-09] MEDS: THIAMINE 100 MG TABLET PO SCH (21:23)
[2024-02-10] MEDS ORDERED: chlordiazePOXIDE HCL 25 MG CAPSULE PO PRN (08:56)
[2024-02-10] MEDS: chlordiazePOXIDE HCL 25 MG CAPSULE PO ONE (09:18)
[2024-02-10] MEDS: amLODIPine BESYLATE 10 MG TABLET (FP) PO SCH (09:19)
[2024-02-10] MEDS: PRENATAL VITAMINS W/ FOLIC ACID TABLET (FP) PO SCH (09:19)
[2024-02-10] MEDS: LOSARTAN POTASSIUM 25 MG TABLET PO SCH (09:19)
[2024-02-10 09:51] LABS: POTASSIUM 3.2 mmol/L (3.5-5.1)
[2024-02-10 09:53] LABS: HEMATOCRIT 43.1 % (35.4-49); HEMOGLOBIN 14.2 GM/dL (11.7-16.9); MCH 22.6 pg (25.7-33.7); MCHC 32.9 g/dl (32.0-35.9); MEAN CELL VOLUME 68.8 fl (80-96); MEAN PLT VOLUME 7.8 fl (7.5-11.1); PLATELET COUNT 292 10^3/uL (134-434); RBC 6.27 M/mm3 (4.00-5.60); WHITE BLOOD COUNT 8.9 K/mm3 (4.0-10.0)
[2024-02-10 10:00] LABS: BLOOD UREA NITROGEN 24.5 mg/dL (7-18)
[2024-02-10 10:06] LABS: CREATININE 1.8 mg/dL (0.55-1.3)
[2024-02-10 10:07] LABS: TOT PROT 6.5 g/dl (6.4-8.2)
[2024-02-10 10:18] LABS: BILIRUBIN,TOTAL 0.9 mg/dL (0.2-1)
[2024-02-10] MEDS: chlordiazePOXIDE HCL 25 MG CAPSULE PO SCH (10:25)
[2024-02-10] MEDS: CHLORTHALIDONE 25 MG TABLET PO SCH (10:45)
[2024-02-10 13:01] LABS: HIV INTERPRETATION NEGATIVE (NEGATIVE)
[2024-02-10] MEDS: INSULIN ASPART SLIDING SCALE (NOVOLOG) 1 VIAL SQ SCH ×2 (17:32→22:32)
[2024-02-10] MEDS ORDERED: PATIENT'S OWN MEDICATION (NON-FORMULARY) (Ferrous Sulfate [Feosol] 325 MG Tablet) PO SCH (18:00)
[2024-02-10] MEDS: hydrOXYzine PAMOATE 25 MG CAPSULE (FP) PO PRN (22:26)
[2024-02-11] MEDS: MAGNESIUM HYDROX 2400MG/30ML ORAL SUSPENSION 30 ML CUP PO PRN (17:37)
[2024-02-12] MEDS: chlordiazePOXIDE HCL 25 MG CAPSULE PO SCH (05:46)
[2024-02-12] MEDS: INSULIN (NOVOLOG) ASPART 100 UNITS/ML 10ML VIAL SQ ONE ×2 (12:50→15:14)
[2024-02-12] MEDS: MAG HYDROX/AL HYDROX/SIMETH 30 ML UNIT-DOSE CUP PO PRN (16:40)
[2024-02-12] MEDS: INSULIN (LEVEMIR) 100 UNITS/ML UNITS SQ SCH (22:47)
[2024-02-13] MEDS ORDERED: chlordiazePOXIDE HCL 10 MG CAPSULE PO PRN
[2024-02-13] MEDS: chlordiazePOXIDE HCL 10 MG CAPSULE PO SCH (05:55)
[2024-02-13] MEDS: POLYETHYLENE GLYCOL (HEALTHYLAX) 3350 17 GM PACKET PO PRN (15:24)
[2024-02-13] MEDS: INSULIN ASPART SLIDING SCALE (NOVOLOG) 1 VIAL SQ SCH (17:14)
[2024-02-13] MEDS ORDERED: INSULIN (NOVOLOG) ASPART 100 UNITS/ML 10ML VIAL ONE (23:24)
[2024-02-14] MEDS: chlordiazePOXIDE HCL 10 MG CAPSULE PO SCH (05:43)
[2024-02-14] MEDS: POTASSIUM CHLORIDE ORAL LIQUID 20 MEQ/15 ML PO SCH (14:36)
[2024-02-14] MEDS ORDERED: INSULIN (NOVOLOG) ASPART 100 UNITS/ML 10ML VIAL ONE ×2 (16:52→23:17)
[2024-02-15] MEDS ORDERED: INSULIN (NOVOLOG) ASPART 100 UNITS/ML 10ML VIAL ONE ×2 (04:39→10:49)
[2024-02-15] MEDS: chlordiazePOXIDE HCL 10 MG CAPSULE PO ONE (06:13)
[2024-02-15 09:10] VITALS: BP 128/83; PULSE 91; RESP 18; TEMP 97.8
== END 2024-02-15 11:44 | disposition home or self-care (01) | DRG 773 ==
LOC: YASAS 15:24 → Y6N 18:31
PROVIDERS: ADMIT Allergy & Immunology; ATTEND Surgery
PROC: HZ2ZZZZ Detoxification Services for Substance Abuse Treatment (ICD-10-PCS; principal; 2024-02-09)
DX: F10.230 Alcohol dependence with withdrawal, uncomplicated (principal); F10.282 Alcohol dependence with alcohol-induced sleep disorder; F10.280 Alcohol dependence with alcohol-induced anxiety disorder; F11.20 Opioid dependence, uncomplicated; F12.20 Cannabis dependence, uncomplicated; F17.210 Nicotine dependence, cigarettes, uncomplicated; F43.10 Post-traumatic stress disorder, unspecified; E11.22 Type 2 diabetes mellitus with diabetic chronic kidney disease; I12.9 Hypertensive chronic kidney disease with stage 1 through stage 4 chronic kidney disease, or unspecified chronic kidney disease; N18.32 Chronic kidney disease, stage 3b; Z79.4 Long term (current) use of insulin; E87.6 Hypokalemia; E78.5 Hyperlipidemia, unspecified; Z86.11 Personal history of tuberculosis; Z91.013 Allergy to seafood; Z88.8 Allergy status to other drugs, medicaments and biological substances; Z56.0 Unemployment, unspecified
CPT/HCPCS: 36415; 71046-TC-FY; 80053; 80305; 82962; 85027; 86780; 86803; 87389; 93005; 93010